=== PATIENT | male | born 1985 | race Caucasian/White ===

== ENCOUNTER 2016-09-10 20:20 | Emergency (ER) | payer MEDICAID ==
--- NOTE | 2016-09-10 21:10 | Emergency Department Report ---
Chief Complaint: Chest Pain Stated Complaint: CHEST PAIN, ELEVATED BLOOD SUGAR, DIZZINESS Time Seen by Provider: 09/10/16 20:58 - HPI History of Present Illness: Patient presents with epigastric pain that radiates down bilateral arms, he also complains of back pain. He denies nausea and vomiting. He does state that he is a borderline diabetic and he has had episodes of dizziness and confusion he states usually after he has eaten something with sugar in it. He does admit to having severe gastric reflux that was diagnosed 10 years ago and he does see at [facility]. - ROS Review of Systems: All other systems unremarkable except documentation in HPI - Exam Vital Signs: Vital Signs 09/10/16 20:38 Temperature 98.3 F Pulse Rate 115 H Respiratory 18 Rate Blood Pressure 121/99 O2 Sat by Pulse 100 Oximetry Physical Exam: Gen: Male well-developed and nourished, no apparent distress noted, ambulatory. Cardiovascular: Heart sounds present S1-S2, no murmur, gallop, edema or ectopy noted, 2+ pulses upper and lower extremities Respiratory: Chest symmetry with respirations, lungs clear to auscultate upper and lower lobes, respirations even and unlabored, no rales, rhonchi, crackles noted. Abdomen: bowel sounds present, soft, nondistended, TTP in epigastric region, no rigidity, guarding or rebound tenderness Psych: AxOx3, answers questions appropriately, mood full range, affect normal, normal speech and tone. MSE screening note: Focused history and physical exam performed. Due to findings the following was ordered: seen by provider, laboratory and radiology studies ordered, and to go to main ED to be seen by physician ED Medical Decision Making - Medical Decision Making seen by provider, laboratory and radiology studies ordered, and to go to main ED to be seen by physician ED Disposition for MSE Condition: Stable
[2016-09-10 22:04] LABS: Basophils % (Auto) 0.5 % (0.0-1.8); Eosinophils % (Auto) 1.1 % (0.0-4.3); Hematocrit 48.7 % (35.5-45.6); Hemoglobin 16.1 gm/dl (11.8-15.2); Mean Corpuscular HGB Conc 33 % (32-34); Mean Corpuscular Hemoglobin 28 pg (28-32); Mean Corpuscular Volume 85 fl (84-94); Platelet Count 219 K/mm3 (140-440); Red Blood Count 5.75 M/mm3 (3.65-5.03); White Blood Count 8.9 K/mm3 (4.5-11.0)
[2016-09-10 22:13] LABS: BUN/Creatinine Ratio 13.75; Blood Urea Nitrogen 11 mg/dL (9-20); Calcium 9.4 mg/dL (8.4-10.2); Carbon Dioxide 28 mmol/L (22-30); Glucose 94 mg/dL (75-100)
[2016-09-10 22:14] LABS: Alanine Aminotransferase 51 units/L (7-56); Albumin 4.6 g/dL (3.9-5); Albumin/Globulin Ratio 1.4 %; Alkaline Phosphatase 67 units/L (35-129); Anion Gap 17 mmol/L; Bilirubin,Total 1.1 mg/dL (0.1-1.2); Chloride 96.6 mmol/L (98-107); Creatine Kinase 116 units/L (55-170); Sodium 138 mmol/L (137-145); Total Protein 7.8 g/dL (6.3-8.2)
[2016-09-10 22:24] LABS: Creatine Kinase MB < 1.0 ng/mL (0.0-4.0)
[2016-09-11 02:08] VITALS: BP 106/66
[2016-09-11 02:17] LABS: Urine Drugs of Abuse Note Disclamer
[2016-09-11 02:45] LABS: Bacteria,Urine 2+ /HPF (Negative); Bilirubin,Urine NEG (Negative); Blood,Urine NEG (Negative); Ketones,Urine NEG (Negative); Leukocyte Esterase,Urine NEG (Negative); Mucus,Urine 3+ /HPF; Nitrite,Urine NEG (Negative); Protein,Urine <15 mg/dL mg/dL (Negative); Urobilinogen,Urine < 2.0 mg/dL (<2.0)
[2016-09-11] MEDS ORDERED: ALUM-MAG HYDROX-SIMETH 200-200-20MG/5ML PO ONE (03:45)
[2016-09-11] MEDS ORDERED: PEPCID PO ONE (03:45)
--- NOTE | 2016-09-11 03:46 | Emergency Department Report ---
ED General Adult HPI - General Chief complaint: Chest Pain Stated complaint: CHEST PAIN, ELEVATED BLOOD SUGAR, DIZZINESS Time Seen by Provider: 09/10/16 20:58 Source: patient, RN notes reviewed, old records reviewed Mode of arrival: Ambulatory Limitations: No Limitations - History of Present Illness Initial comments: This is a 31-year-old male. He is previously unknown to me. He reports a history of borderline diabetes. May have a history of GERD/gastritis. Presents to the ER complaining of bilateral chest wall pain for 2 days, squeezing, epigastric pain, dizziness. He reports intermittent dizziness and confusion after consuming sweet foods and coffee. There is no lower extremity pain. There is no lower extremity swelling. No recent trips greater than 4 hours. No recent hospital admissions. Chest discomfort does not radiate anywhere. He cannot describe exacerbating or relieving factors. -: Gradual Location: chest, abdomen Severity scale (0 -10): 2 Quality: aching Consistency: intermittent Improves with: rest Worsens with: eating Associated Symptoms: chest pain - Related Data Previous Rx's Medication Instructions Recorded Last Taken Type Penicillin Vk [Veetids TAB] 500 mg PO TID #21 tablet 12/03/15 Unknown Rx traMADol [Ultram] 50 mg PO Q6HR PRN #20 tablet 12/03/15 Unknown Rx Cyclobenzaprine [Flexeril] 10 mg PO TID PRN #15 tablet 12/12/15 Unknown Rx Ibuprofen [Motrin 800 MG tab] 800 mg PO Q8HR PRN #30 tablet 12/12/15 Unknown Rx Dicyclomine [Bentyl] 10 mg PO QID PRN #20 capsule 09/11/16 Unknown Rx Allergies Allergy/AdvReac Type Severity Reaction Status Date / Time No Known Allergies Allergy Verified 06/07/16 18:04 ED Review of Systems ROS: Stated complaint: CHEST PAIN, ELEVATED BLOOD SUGAR, DIZZINESS Other details as noted in HPI Constitutional: denies: fever, malaise Eyes: denies: vision change Respiratory: see HPI Cardiovascular: chest pain Gastrointestinal: abdominal pain Genitourinary: denies: frequency Musculoskeletal: arthralgia, myalgia Skin: denies: lesions Neurological: denies: weakness Psychiatric: anxiety ED Past Medical Hx - Past Medical History Previous Medical History?: Yes Hx GERD: Yes Additional medical history: INSOMNIA - Surgical History Past Surgical History?: No - Social History Smoking Status: Never Smoker Substance Use Type: None - Medications Home Medications: Home Medications Medication Instructions Recorded Confirmed Last Taken Type Penicillin Vk [Veetids TAB] 500 mg PO TID #21 tablet 12/03/15 Unknown Rx traMADol [Ultram] 50 mg PO Q6HR PRN #20 tablet 12/03/15 Unknown Rx Cyclobenzaprine [Flexeril] 10 mg PO TID PRN #15 tablet 12/12/15 Unknown Rx Ibuprofen [Motrin 800 MG tab] 800 mg PO Q8HR PRN #30 tablet 12/12/15 Unknown Rx Dicyclomine [Bentyl] 10 mg PO QID PRN #20 capsule 09/11/16 Unknown Rx ED Physical Exam - General Limitations: No Limitations General appearance: alert, in no apparent distress - Head Head exam: Present: atraumatic, normocephalic - Eye Eye exam: Present: normal appearance, EOMI. Absent: nystagmus - ENT ENT exam: Present: normal exam, normal orophraynx, mucous membranes moist, normal external ear exam - Neck Neck exam: Present: normal inspection, full ROM. Absent: tenderness, meningismus - Respiratory Respiratory exam: Present: normal lung sounds bilaterally. Absent: respiratory distress, wheezes, rales, rhonchi, stridor, chest wall tenderness, accessory muscle use, decreased breath sounds - Cardiovascular Cardiovascular Exam: Present: regular rate, normal rhythm, normal heart sounds. Absent: bradycardia, tachycardia, irregular rhythm, systolic murmur, diastolic murmur, rubs, gallop - GI/Abdominal GI/Abdominal exam: Present: soft, normal bowel sounds, other (there is minimal epigastric tenderness to palpation. There is no rebound, guarding or peritoneal signs.). Absent: distended, guarding, rebound, rigid, pulsatile mass - Rectal Rectal exam: Present: deferred - Extremities Exam Extremities exam: Present: normal inspection, full ROM, normal capillary refill. Absent: tenderness, pedal edema, joint swelling, calf tenderness - Back Exam Back exam: Present: normal inspection, full ROM. Absent: tenderness, CVA tenderness (R), CVA tenderness (L), muscle spasm, paraspinal tenderness, vertebral tenderness - Neurological Exam Neurological exam: Present: alert, oriented X3, normal gait, other (Extraocular movements intact. Tongue midline. No facial droop. Facial sensation intact to light touch in the V1, V2, V3 distribution bilaterally. 5 and 5 strength in 4 extremities.. Sensation is intact to light touch in 4 extremities.). Absent : motor sensory deficit - Psychiatric Psychiatric exam: Present: anxious - Skin Skin exam: Present: warm, dry, intact, normal color. Absent: rash ED Course Vital Signs 09/10/16 09/11/16 20:38 02:07 Temperature 98.3 F Pulse Rate 115 H 88 Respiratory 18 18 Rate Blood Pressure 121/99 Blood Pressure 106/66 [Left] O2 Sat by Pulse 100 Oximetry - Reevaluation(s) Reevaluation #1: 09/11/16 04:20 differential diagnosis: GERD, gastritis, pancreatitis, hyperglycemia, diabetic ketoacidosis, ammonia, constipation, anxiety, conversion disorder Assessment and plan: 31-year-old male with multiple complaints. He is afebrile with reassuring vital signs. His tachycardia has resolved. He is low risk by MATTEO score, low risk by heart score, low risk by well's criteria, with no pulmonary embolus or DVT risk factors. He has a GCS of 15, with an NIH score of 0, is clinically sober, and walks with a steady gait. His laboratory studies were not consistent with diabetic ketoacidosis or severe hyperglycemia, they were not consistent with pancreatitis either. A chest x-ray, and abdominal x-ray were essentially unremarkable, his EKG is morphologically unchanged from her prior EKG. Patient appears to have a significant anxiety component. Reevaluation #2: 09/11/16 04:25 patient's urinalysis is appreciated. No irritative or obstructive urinary symptoms. He can follow-up with her primary care doctor for this. There is no lower abdominal pain, tenderness, rebound, guarding. ED Medical Decision Making - Lab Data Result diagrams: 09/10/16 21:38 09/10/16 21:38 Vital Signs 09/10/16 09/11/16 20:38 02:07 Temperature 98.3 F Pulse Rate 115 H 88 Respiratory 18 18 Rate Blood Pressure 121/99 Blood Pressure 106/66 [Left] O2 Sat by Pulse 100 Oximetry Lab Results 09/10/16 09/10/16 09/10/16 Range/Units 20:54 21:38 21:38 WBC 8.9 (4.5-11.0) K/mm3 RBC 5.75 H (3.65-5.03) M/mm3 Hgb 16.1 H (11.8-15.2) gm/dl Hct 48.7 H (35.5-45.6) % MCV 85 (84-94) fl MCH 28 (28-32) pg MCHC 33 (32-34) % RDW 14.0 (13.2-15.2) % Plt Count 219 (140-440) K/mm3 Lymph % (Auto) 20.7 (13.4-35.0) % [place] % (Auto) 5.7 (0.0-7.3) % Eos % (Auto) 1.1 (0.0-4.3) % Baso % (Auto) 0.5 (0.0-1.8) % Lymph # 1.8 (1.2-5.4) K/mm3 [place] # 0.5 (0.0-0.8) K/mm3 Eos # 0.1 (0.0-0.4) K/mm3 Baso # 0.0 (0.0-0.1) K/mm3 Seg Neutrophils % 72.0 H (40.0-70.0) % Seg Neutrophils # 6.4 (1.8-7.7) K/mm3 Sodium 138 (137-145) mmol/L Potassium 4.0 (3.6-5.0) mmol/L Chloride 96.6 L (98-107) mmol/L Carbon Dioxide 28 (22-30) mmol/L Anion Gap 17 mmol/L BUN 11 (9-20) mg/dL Creatinine 0.8 (0.8-1.5) mg/dL Estimated GFR > 60 ml/min BUN/Creatinine Ratio 13.75 % Glucose 94 (75-100) mg/dL POC Glucose 76 (70-105) Calcium 9.4 (8.4-10.2) mg/dL Total Bilirubin 1.1 (0.1-1.2) mg/dL AST 29 (5-40) units/L ALT 51 (7-56) units/L Alkaline Phosphatase 67 (35-129) units/L Total Creatine Kinase 116 (55-170) units/L CK-MB (CK-2) < 1.0 (0.0-4.0) ng/mL CK-MB (CK-2) Rel Index 0.8 (0-4) Troponin T < 0.010 (0.00-0.029) ng/mL Total Protein 7.8 (6.3-8.2) g/dL Albumin 4.6 (3.9-5) g/dL Albumin/Globulin Ratio 1.4 % Lipase (13-60) units/L Urine Color (Yellow) Urine Turbidity (Clear) Urine pH (5.0-7.0) Ur Specific [place] (1.003-1.030) Urine Protein (Negative) mg/dL Urine Glucose (UA) (Negative) mg/dL Urine Ketones (Negative) mg/dL Urine Blood (Negative) Urine Nitrite (Negative) Urine Bilirubin (Negative) Urine Urobilinogen (<2.0) mg/dL Ur Leukocyte Esterase (Negative) Urine WBC (Auto) (0.0-6.0) /HPF Urine RBC (Auto) (0.0-6.0) /HPF Urine Bacteria (Auto) (Negative) /HPF Amorphous Crystals Urine Mucus /HPF Urine Opiates Screen Urine Methadone Screen Ur Barbiturates Screen Ur Phencyclidine Scrn Ur Amphetamines Screen U Benzodiazepines Scrn Urine Cocaine Screen U Marijuana (THC) Screen Drugs of Abuse Note Plasma/Serum Alcohol (0-0.07) gm% 09/10/16 09/10/16 09/11/16 Range/Units 21:38 21:38 02:12 WBC (4.5-11.0) K/mm3 RBC (3.65-5.03) M/mm3 Hgb (11.8-15.2) gm/dl Hct (35.5-45.6) % MCV (84-94) fl MCH (28-32) pg MCHC (32-34) % RDW (13.2-15.2) % Plt Count (140-440) K/mm3 Lymph % (Auto) (13.4-35.0) % [place] % (Auto) (0.0-7.3) % Eos % (Auto) (0.0-4.3) % Baso % (Auto) (0.0-1.8) % Lymph # (1.2-5.4) K/mm3 [place] # (0.0-0.8) K/mm3 Eos # (0.0-0.4) K/mm3 Baso # (0.0-0.1) K/mm3 Seg Neutrophils % (40.0-70.0) % Seg Neutrophils # (1.8-7.7) K/mm3 Sodium (137-145) mmol/L Potassium (3.6-5.0) mmol/L Chloride (98-107) mmol/L Carbon Dioxide (22-30) mmol/L Anion Gap mmol/L BUN (9-20) mg/dL Creatinine (0.8-1.5) mg/dL Estimated GFR ml/min BUN/Creatinine Ratio % Glucose (75-100) mg/dL POC Glucose (70-105) Calcium (8.4-10.2) mg/dL Total Bilirubin (0.1-1.2) mg/dL AST (5-40) units/L ALT (7-56) units/L Alkaline Phosphatase (35-129) units/L Total Creatine Kinase (55-170) units/L CK-MB (CK-2) (0.0-4.0) ng/mL CK-MB (CK-2) Rel Index (0-4) Troponin T (0.00-0.029) ng/mL Total Protein (6.3-8.2) g/dL Albumin (3.9-5) g/dL Albumin/Globulin Ratio % Lipase 38 (13-60) units/L Urine Color [place] (Yellow) Urine Turbidity Cloudy (Clear) Urine pH 6.0 (5.0-7.0) Ur Specific [place] 1.026 (1.003-1.030) Urine Protein <15 mg/dl (Negative) mg/dL Urine Glucose (UA) Neg (Negative) mg/dL Urine Ketones Neg (Negative) mg/dL Urine Blood Neg (Negative) Urine Nitrite Neg (Negative) Urine Bilirubin Neg (Negative) Urine Urobilinogen < 2.0 (<2.0) mg/dL Ur Leukocyte Esterase Neg (Negative) Urine WBC (Auto) 2.0 (0.0-6.0) /HPF Urine RBC (Auto) 8.0 (0.0-6.0) /HPF Urine Bacteria (Auto) 2+ (Negative) /HPF Amorphous Crystals 3+ Urine Mucus 3+ /HPF Urine Opiates Screen Urine Methadone Screen Ur Barbiturates Screen Ur Phencyclidine Scrn Ur Amphetamines Screen U Benzodiazepines Scrn Urine Cocaine Screen U Marijuana (THC) Screen Drugs of Abuse Note Plasma/Serum Alcohol < 0.01 (0-0.07) gm% 09/11/16 Range/Units 02:12 WBC (4.5-11.0) K/mm3 RBC (3.65-5.03) M/mm3 Hgb (11.8-15.2) gm/dl Hct (35.5-45.6) % MCV (84-94) fl MCH (28-32) pg MCHC (32-34) % RDW (13.2-15.2) % Plt Count (140-440) K/mm3 Lymph % (Auto) (13.4-35.0) % [place] % (Auto) (0.0-7.3) % Eos % (Auto) (0.0-4.3) % Baso % (Auto) (0.0-1.8) % Lymph # (1.2-5.4) K/mm3 [place] # (0.0-0.8) K/mm3 Eos # (0.0-0.4) K/mm3 Baso # (0.0-0.1) K/mm3 Seg Neutrophils % (40.0-70.0) % Seg Neutrophils # (1.8-7.7) K/mm3 Sodium (137-145) mmol/L Potassium (3.6-5.0) mmol/L Chloride (98-107) mmol/L Carbon Dioxide (22-30) mmol/L Anion Gap mmol/L BUN (9-20) mg/dL Creatinine (0.8-1.5) mg/dL Estimated GFR ml/min BUN/Creatinine Ratio % Glucose (75-100) mg/dL POC Glucose (70-105) Calcium (8.4-10.2) mg/dL Total Bilirubin (0.1-1.2) mg/dL AST (5-40) units/L ALT (7-56) units/L Alkaline Phosphatase (35-129) units/L Total Creatine Kinase (55-170) units/L CK-MB (CK-2) (0.0-4.0) ng/mL CK-MB (CK-2) Rel Index (0-4) Troponin T (0.00-0.029) ng/mL Total Protein (6.3-8.2) g/dL Albumin (3.9-5) g/dL Albumin/Globulin Ratio % Lipase (13-60) units/L Urine Color (Yellow) Urine Turbidity (Clear) Urine pH (5.0-7.0) Ur Specific [place] (1.003-1.030) Urine Protein (Negative) mg/dL Urine Glucose (UA) (Negative) mg/dL Urine Ketones (Negative) mg/dL Urine Blood (Negative) Urine Nitrite (Negative) Urine Bilirubin (Negative) Urine Urobilinogen (<2.0) mg/dL Ur Leukocyte Esterase (Negative) Urine WBC (Auto) (0.0-6.0) /HPF Urine RBC (Auto) (0.0-6.0) /HPF Urine Bacteria (Auto) (Negative) /HPF Amorphous Crystals Urine Mucus /HPF Urine Opiates Screen Presumptive negative Urine Methadone Screen Presumptive negative Ur Barbiturates Screen Presumptive negative Ur Phencyclidine Scrn Presumptive negative Ur Amphetamines Screen Presumptive negative U Benzodiazepines Scrn Presumptive negative Urine Cocaine Screen Presumptive negative U Marijuana (THC) Screen Presumptive negative Drugs of Abuse Note Disclamer Plasma/Serum Alcohol (0-0.07) gm% - EKG Data EKG shows normal: axis, intervals, QRS complexes, ST-T waves Rate: tachycardia - EKG Data Interpretation: unchanged when compared t 09/11/16 04:24 Sinus tachycardia, 109 bpm, normal intervals, normal axis, not morphologically consistent with STEMI, appears unchanged when compared to prior EKG. - Radiology Data Radiology results: image reviewed interpreted by me: X-ray of the chest negative for acute disease. X-ray of the abdomen and pelvis essentially negative. Constipation suggested. Critical care attestation.: If time is entered above; I have spent that time in minutes in the direct care of this critically ill patient, excluding procedure time. ED Disposition Clinical Impression: Abdominal pain Disposition: DISCHARGED TO HOME OR SELFCARE Is pt being admited?: No Does the pt Need Aspirin: No Condition: Stable Instructions: Abdominal Pain (ED) Additional Instructions: Take the pain medication as directed. Avoid consumption of heavy, spicy foods, avoid consumption of sweets, and coffee. Follow up with a primary care doctor within the next week to [address] Chen a local primary care doctor. Alternatively, you may follow up with a shed boss. Dr. Levy is a local gastroenterology specialist. Urinalysis (your urine test) demonstrated nonspecific blood and scant bacteria. This should be followed up by a primary care doctor. Return to the ER right away with new pain, worsened pain, migration of pain, fevers or chills , nausea or vomiting, inability to tolerate liquid feeds. Prescriptions: Dicyclomine [Bentyl] 10 mg PO QID PRN #20 capsule PRN Reason: Pain Referrals: PRIMARY CARE, [Primary Care Provider] - 3-5 Days MIKEL STEINER MD [Staff Physician] - 3-5 Days MARCELLA LEVY MD [Staff Physician] - 3-5 Days
--- NOTE | 2016-09-11 07:36 | XRay Report ---
Single view chest: History: Chest pain, abdominal pain. Findings: Normal cardiomediastinal silhouette. Trachea is midline. No consolidation, pneumothorax or pleural effusion. Impression: No acute cardiopulmonary findings.
== END 2016-09-11 05:49 | disposition home or self-care (01) ==
LOC: ED 20:20
DX: R10.13 Epigastric pain (principal); K21.9 Gastro-esophageal reflux disease without esophagitis
CPT/HCPCS: 36415; 74022; 80053; 80307; 81001; 82550; 82553; 82962; 83690; 84484; 85025; 93005; 93010; 99284; G0480; 80320

== ENCOUNTER 2016-10-17 21:48 | Emergency (ER) | payer MEDICAID ==
[2016-10-17 22:48] LABS: Eosinophils % (Auto) 2.8 % (0.0-4.3); Hematocrit 48.2 % (35.5-45.6); Hemoglobin 16.2 gm/dl (11.8-15.2); Mean Corpuscular HGB Conc 34 % (32-34); Mean Corpuscular Hemoglobin 28 pg (28-32); Mean Corpuscular Volume 84 fl (84-94); Platelet Count 201 K/mm3 (140-440); Red Blood Count 5.77 M/mm3 (3.65-5.03); Red Cell Distribution Width 14.4 % (13.2-15.2)
[2016-10-17 23:56] LABS: Anion Gap 20 mmol/L; BUN/Creatinine Ratio 11.42; Blood Urea Nitrogen 8 mg/dL (9-20); Calcium 9.7 mg/dL (8.4-10.2); Carbon Dioxide 27 mmol/L (22-30); Chloride 98.3 mmol/L (98-107); Glucose 104 mg/dL (75-100); Potassium 4.5 mmol/L (3.6-5.0); Sodium 141 mmol/L (137-145)
[2016-10-18 03:32] VITALS: BP 129/88
[2016-10-18] MEDS ORDERED: TORADOL IM ONE (04:20)
[2016-10-18] MEDS ORDERED: ULTRAM PO ONE (04:20)
--- NOTE | 2016-10-18 04:35 | Emergency Department Report ---
ED Chest Pain HPI - General Chief Complaint: Chest Pain Stated Complaint: CHEST PAIN/HEADACHE Time Seen by Provider: 10/18/16 04:12 Source: patient Mode of arrival: Ambulatory Limitations: No Limitations - History of Present Illness Initial Comments: 31-year-old male with a past medical history of GERD and insomnia presents to the hospital with complaints of chest pain after last night. Pain is in the right upper chest extending to shoulder and trapezius muscle. It is intermittent pressure rated 6/10 in intensity worse with movement and alleviated at rest. Patient reports a cough for several days and thinks he is allergic to pollen. The last 2-3 weeks he has had intermittent right frontal headache. No reports of vomiting, diaphoresis, fever, shortness of breath, recent travel, or edema. Occasional nausea reported. Severity scale (0 -10): 0 - Related Data Previous Rx's Medication Instructions Recorded Last Taken Type Penicillin Vk [Veetids TAB] 500 mg PO TID #21 tablet 12/03/15 Unknown Rx Dicyclomine [Bentyl] 10 mg PO QID PRN #20 capsule 09/11/16 Unknown Rx Cyclobenzaprine [Flexeril 10 MG 10 mg PO TID PRN #15 tablet 10/18/16 Unknown Rx TAB] Ibuprofen [Motrin 800 MG tab] 800 mg PO Q8HR PRN #30 tablet 10/18/16 Unknown Rx traMADol [Ultram 50 MG tab] 50 mg PO Q6HR PRN #20 tablet 10/18/16 Unknown Rx Allergies Allergy/AdvReac Type Severity Reaction Status Date / Time No Known Allergies Allergy Verified 06/07/16 18:04 MATTEO score - Matteo Score Age > 65: (0) No Aspirin use within the Past 7 Days: (0) No 3 or more CAD Risk Factors: (0) No 2 or more Angina events in past 24 hrs: (0) No Known CAD with more than 50% Stenosis: (0) No Elevated Cardiac Markers: (0) No ST Deviation Greater than 0.5mm: (0) No MATTEO Score: 0 ED Review of Systems ROS: Stated complaint: CHEST PAIN/HEADACHE Other details as noted in HPI Comment: All other systems reviewed and negative Other: Constitutional: No fevers chills Eyes: No eye pain visual changes ENT: No ear pain or throat pain Neck: Denies pain Respiratory: Denies cough wheezing shortness of breath Cardiovascular: Denies palpitations, syncope GI: Denies abdominal pain, nausea, vomiting, diarrhea : Denies dysuria Musculoskeletal: Denies back aisha Skin: Denies rash, lesions, erythema Neurologic: Denies headache, numbness, weakness Psychiatric: Denies suicidal ideation, hallucinations y ED Past Medical Hx - Past Medical History Previous Medical History?: Yes Hx GERD: Yes Additional medical history: INSOMNIA / [employer] 2015 - Surgical History Past Surgical History?: No - Social History Smoking Status: Former Smoker Substance Use Type: Alcohol - Medications Home Medications: Home Medications Medication Instructions Recorded Confirmed Last Taken Type Penicillin Vk [Veetids TAB] 500 mg PO TID #21 tablet 12/03/15 Unknown Rx Dicyclomine [Bentyl] 10 mg PO QID PRN #20 capsule 09/11/16 Unknown Rx Cyclobenzaprine [Flexeril 10 MG 10 mg PO TID PRN #15 tablet 10/18/16 Unknown Rx TAB] Ibuprofen [Motrin 800 MG tab] 800 mg PO Q8HR PRN #30 tablet 10/18/16 Unknown Rx traMADol [Ultram 50 MG tab] 50 mg PO Q6HR PRN #20 tablet 10/18/16 Unknown Rx ED Physical Exam - General Limitations: No Limitations - Other Other exam information: General: No limitations, patient is alert in no acute distress Head exam: Atraumatic, normocephalic Eyes exam: Normal appearance ENT: Moist mucous membrane, normal oropharynx, no sinus tenderness on palpation Neck exam: Normal inspection, full range of motion and no midline tenderness, no meningismus Respiratory exam: Clear to auscultation bilateral, no wheezes, rales, crackles Cardiovascular: Normal rate and rhythm, distal tenderness to the right upper chest wall and trapezius also reproducible with movement Abdomen: Soft, nondistended, and nontender, with normal bowel sounds, no rebound, or guarding Extremity: Full range of motion normal inspection no deformity Back: Normal Inspection, full range of motion, no tenderness Neurologic: Alert, oriented x3, cranial nerves intact, no motor or sensory deficit Psychiatric: normal affect, normal mood Skin: Warm, dry, intact ED Course Vital Signs 10/17/16 10/18/16 22:00 03:24 Temperature 99.1 F Pulse Rate 103 H 91 H Respiratory 18 18 Rate Blood Pressure 125/81 Blood Pressure 129/88 [Left] O2 Sat by Pulse 99 100 Oximetry - Reevaluation(s) Reevaluation #1: 10/18/16 04:36 Patient treated with Toradol and tramadol ED Medical Decision Making - Lab Data Result diagrams: 10/17/16 22:29 10/17/16 22:29 Lab Results 10/17/16 10/17/16 10/18/16 Range/Units 22:29 22:29 01:01 WBC 8.0 (4.5-11.0) K/mm3 RBC 5.77 H (3.65-5.03) M/mm3 Hgb 16.2 H (11.8-15.2) gm/dl Hct 48.2 H (35.5-45.6) % MCV 84 (84-94) fl MCH 28 (28-32) pg MCHC 34 (32-34) % RDW 14.4 (13.2-15.2) % Plt Count 201 (140-440) K/mm3 Lymph % (Auto) 34.6 (13.4-35.0) % [place] % (Auto) 6.8 (0.0-7.3) % Eos % (Auto) 2.8 (0.0-4.3) % Baso % (Auto) 1.0 (0.0-1.8) % Lymph # 2.8 (1.2-5.4) K/mm3 [place] # 0.5 (0.0-0.8) K/mm3 Eos # 0.2 (0.0-0.4) K/mm3 Baso # 0.1 (0.0-0.1) K/mm3 Seg Neutrophils % 54.8 (40.0-70.0) % Seg Neutrophils # 4.4 (1.8-7.7) K/mm3 Sodium 141 (137-145) mmol/L Potassium 4.5 (3.6-5.0) mmol/L Chloride 98.3 (98-107) mmol/L Carbon Dioxide 27 (22-30) mmol/L Anion Gap 20 mmol/L BUN 8 L (9-20) mg/dL Creatinine 0.7 L (0.8-1.5) mg/dL Estimated GFR > 60 ml/min BUN/Creatinine Ratio 11.42 % Glucose 104 H (75-100) mg/dL Calcium 9.7 (8.4-10.2) mg/dL Troponin T < 0.010 < 0.010 (0.00-0.029) ng/mL - EKG Data -: EKG Interpreted by Me (nsr rate 97, no stemi) - Medical Decision Making Patient will be treated for musculoskeletal chest pain and seasonal allergies. Pain is right-sided, reproducible with normal EKG and negative cardiac enzymes. Patient also lacks cardiac or PE risk factors - Differential Diagnosis msk pain, bronchitis, seasonal allergies, sinusitis, migraine Critical Care Time: No Critical care attestation.: If time is entered above; I have spent that time in minutes in the direct care of this critically ill patient, excluding procedure time. ED Disposition Clinical Impression: Chest wall pain Disposition: DISCHARGED TO HOME OR SELFCARE Is pt being admited?: No Does the pt Need Aspirin: No Condition: Stable Instructions: Thoracic Pain (ED) Additional Instructions: Take the medication as prescribed. Tramadol and Flexeril can cause drowsiness so do not drive while taking these medications. Follow up with your doctor to doctor provided. Return if symptoms worsen Prescriptions: Cyclobenzaprine [Flexeril 10 MG TAB] 10 mg PO TID PRN #15 tablet PRN Reason: Muscle Spasm Ibuprofen [Motrin 800 MG tab] 800 mg PO Q8HR PRN #30 tablet PRN Reason: Pain traMADol [Ultram 50 MG tab] 50 mg PO Q6HR PRN #20 tablet PRN Reason: Pain Referrals: PRIMARY CARE, [Primary Care Provider] - 3-5 Days [facility] [Provider Group] - 3-5 Days Time of Disposition: 04:38
== END 2016-10-18 05:21 | disposition home or self-care (01) ==
LOC: ED 21:48
DX: R07.89 Other chest pain (principal); K21.9 Gastro-esophageal reflux disease without esophagitis; Z87.891 Personal history of nicotine dependence; G47.00 Insomnia, unspecified
CPT/HCPCS: 36415; 80048; 84484; 85025; 93005; 93010; 96372; 99284; J1885

== ENCOUNTER 2017-02-28 17:30 | Emergency (ER) | payer MEDICAID ==
[2017-02-28 18:18] LABS: Basophils % (Auto) 0.6 % (0.0-1.8); Eosinophils % (Auto) 2.4 % (0.0-4.3); Hematocrit 46.7 % (35.5-45.6); Hemoglobin 15.7 gm/dl (11.8-15.2); Mean Corpuscular HGB Conc 34 % (32-34); Mean Corpuscular Hemoglobin 29 pg (28-32); Mean Corpuscular Volume 85 fl (84-94); Platelet Count 208 K/mm3 (140-440); Red Blood Count 5.47 M/mm3 (3.65-5.03); Red Cell Distribution Width 14.1 % (13.2-15.2); White Blood Count 8.3 K/mm3 (4.5-11.0)
[2017-02-28 18:43] LABS: Anion Gap 19 mmol/L; Blood Urea Nitrogen 14 mg/dL (9-20); Calcium 9.1 mg/dL (8.4-10.2); Carbon Dioxide 26 mmol/L (22-30); Chloride 100.3 mmol/L (98-107); Glucose 106 mg/dL (75-100); Potassium 4.1 mmol/L (3.6-5.0); Sodium 141 mmol/L (137-145)
[2017-02-28 21:04] LABS: Bilirubin,Urine NEG (Negative); Blood,Urine NEG (Negative); Ketones,Urine NEG (Negative); Leukocyte Esterase,Urine NEG (Negative); Mucus,Urine 2+ /HPF; Nitrite,Urine NEG (Negative); Urobilinogen,Urine < 2.0 mg/dL (<2.0)
--- NOTE | 2017-03-01 00:43 | Emergency Department Report ---
ED Chest Pain HPI - General Chief Complaint: Chest Pain Stated Complaint: CHEST PAIN Time Seen by Provider: 03/01/17 00:33 Source: patient Mode of arrival: Ambulatory Limitations: No Limitations - History of Present Illness Initial Comments: 31 years old male coming with left-sided chest pain started yesterday on and off , described his pain as a sharp pain. Denied any fever shortness of breaths nor nausea nor vomiting no other complaint. Patient stated that he is been dealing with a lot of stress. But he is denying any suicidal or homicidal ideation depression. MD Complaint: chest pain Onset: during rest Severity scale (0 -10): 6 - Related Data Previous Rx's Medication Instructions Recorded Last Taken Type Penicillin Vk [Veetids TAB] 500 mg PO TID #21 tablet 12/03/15 Unknown Rx Dicyclomine [Bentyl] 10 mg PO QID PRN #20 capsule 09/11/16 Unknown Rx Cyclobenzaprine [Flexeril 10 MG 10 mg PO TID PRN #15 tablet 10/18/16 Unknown Rx TAB] Ibuprofen [Motrin 800 MG tab] 800 mg PO Q8HR PRN #30 tablet 10/18/16 Unknown Rx traMADol [Ultram 50 MG tab] 50 mg PO Q6HR PRN #20 tablet 10/18/16 Unknown Rx Allergies Allergy/AdvReac Type Severity Reaction Status Date / Time No Known Allergies Allergy Verified 06/07/16 18:04 Heart Score - HEART Score History: Slightly suspicious EKG: Normal Age: < 45 Risk factors: No known risk factors Troponin: < normal limit HEART Score: 0 - Critical Actions Critical Actions: 0-3 pts:0.9-1.7%risk of adverse cardiac event.Candidate for discharge ED Review of Systems ROS: Stated complaint: CHEST PAIN Other details as noted in HPI Comment: All other systems reviewed and negative Constitutional: denies: chills, fever Eyes: denies: eye pain, eye discharge, vision change Respiratory: denies: cough, shortness of breath, SOB with exertion Cardiovascular: chest pain. denies: palpitations, dyspnea on exertion, edema, syncope, paroxysmal nocturnal dyspnea Endocrine: denies: intolerance to cold, intolerance to heat Gastrointestinal: denies: abdominal pain, nausea, vomiting, diarrhea, constipation, hematemesis Genitourinary: denies: dysuria, frequency Neurological: denies: headache ED Past Medical Hx - Past Medical History Hx GERD: Yes Additional medical history: INSOMNIA / HOLTER MONITOR 2016 - Social History Smoking Status: Current Some Day Smoker Substance Use Type: Alcohol - Medications Home Medications: Home Medications Medication Instructions Recorded Confirmed Last Taken Type Penicillin Vk [Veetids TAB] 500 mg PO TID #21 tablet 12/03/15 Unknown Rx Dicyclomine [Bentyl] 10 mg PO QID PRN #20 capsule 09/11/16 Unknown Rx Cyclobenzaprine [Flexeril 10 MG 10 mg PO TID PRN #15 tablet 10/18/16 Unknown Rx TAB] Ibuprofen [Motrin 800 MG tab] 800 mg PO Q8HR PRN #30 tablet 10/18/16 Unknown Rx traMADol [Ultram 50 MG tab] 50 mg PO Q6HR PRN #20 tablet 10/18/16 Unknown Rx ED Physical Exam - General Limitations: No Limitations General appearance: alert, in no apparent distress - Head Head exam: Present: atraumatic - Eye Eye exam: Present: normal appearance - ENT ENT exam: Present: normal exam - Neck Neck exam: Present: normal inspection, full ROM. Absent: tenderness, meningismus - Respiratory Respiratory exam: Present: normal lung sounds bilaterally. Absent: respiratory distress, wheezes, rales, rhonchi, stridor, chest wall tenderness, accessory muscle use, decreased breath sounds, prolonged expiratory - Cardiovascular Cardiovascular Exam: Present: regular rate, normal rhythm, normal heart sounds - GI/Abdominal GI/Abdominal exam: Present: soft. Absent: distended, tenderness, guarding, rebound, rigid, normal bowel sounds, mass, bruit, pulsatile mass, hernia - Neurological Exam Neurological exam: Present: alert, oriented X3, CN II-XII intact - Skin Skin exam: Present: warm, intact, normal color ED Course Vital Signs 02/28/17 02/28/17 03/01/17 17:42 20:52 00:35 Temperature 98.7 F 98.6 F 98.7 F Pulse Rate 101 H 72 59 L Respiratory 18 18 17 Rate Blood Pressure 126/90 111/78 Blood Pressure 109/82 [Left] O2 Sat by Pulse 100 99 99 Oximetry - Reevaluation(s) Reevaluation #1: 03/01/17 01:32 Patient is stating that he is feeling much better. All his labs and x-rays negative EKG is completely normal advised patient to follow up with his primary care physician for further management. MATTEO score - Matteo Score Age > 65: (0) No Aspirin use within the Past 7 Days: (0) No 3 or more CAD Risk Factors: (0) No 2 or more Angina events in past 24 hrs: (0) No Known CAD with more than 50% Stenosis: (0) No Elevated Cardiac Markers: (0) No ST Deviation Greater than 0.5mm: (0) No MATTEO Score: 0 ED Medical Decision Making - Lab Data Result diagrams: 02/28/17 17:56 02/28/17 17:56 Critical care attestation.: If time is entered above; I have spent that time in minutes in the direct care of this critically ill patient, excluding procedure time. ED Disposition Clinical Impression: Chest pain Disposition: DC-01 TO HOME OR SELFCARE Is pt being admited?: No Does the pt Need Aspirin: No Condition: Stable Instructions: Chest Pain (ED) Referrals: PRIMARY CARE, [Primary Care Provider] - 3-5 Days
[2017-03-01] MEDS ORDERED: TORADOL IM ONE (01:35)
[2017-03-01 02:07] VITALS: BP 116/74
--- NOTE | 2017-03-01 09:22 | XRay Report ---
AP CHEST: HISTORY: chest pain AP view of the chest demonstrates a normal mediastinal and cardiac contour with clear lungs and normal bony and soft tissue structures. IMPRESSION: No acute cardiopulmonary process.
== END 2017-03-01 02:05 | disposition home or self-care (01) ==
LOC: ED 17:30
DX: R07.9 Chest pain, unspecified (principal); K21.9 Gastro-esophageal reflux disease without esophagitis; F17.200 Nicotine dependence, unspecified, uncomplicated
CPT/HCPCS: 36415; 71010; 80048; 81001; 84484; 85025; 93005; 93010; 96372; 99284; J1885

== ENCOUNTER 2017-04-13 04:09 | Emergency (ER) | payer MEDICAID ==
[2017-04-13] MEDS ORDERED: LIDOCAINE VISCOUS 2% PO ONE (06:49)
[2017-04-13] MEDS ORDERED: ATROVENT IH ONE (06:50)
[2017-04-13] MEDS ORDERED: PROVENTIL IH ONE (06:50)
[2017-04-13] MEDS ORDERED: ALUM-MAG HYDROX-SIMETH 200-200-20MG/5ML PO ONE (06:50)
[2017-04-13] MEDS ORDERED: DELTASONE PO ONE (06:51)
--- NOTE | 2017-04-13 07:16 | XRay Report ---
ROUTINE CHEST, TWO VIEWS: HISTORY: Shortness of breath. The trachea, heart, mediastinal contour, lung bernardo and bony thorax are unremarkable. IMPRESSION: Unremarkable chest x-ray. No change since 03/01/17.
[2017-04-13 07:33] VITALS: BP 106/75
--- NOTE | 2017-04-13 07:57 | Emergency Department Report ---
ED General Adult HPI - General Chief complaint: Dyspnea/Respdistress Stated complaint: SHORTH OF BREATH Time Seen by Provider: 04/13/17 06:48 Source: patient Mode of arrival: Ambulatory Limitations: No Limitations - History of Present Illness Initial comments: Patient is a 31-year-old male no significant past medical history who presents with cough and some slight shortness of breath. Patient states that he has had upper respiratory tract irritation for the last couple weeks. He states that it is worse at night coughing makes his symptoms worse. He denies anything making anything better. H&H and states that he smokes and he denies having any chest pain but he has been having a moderate productive cough. Patient states that he will only get short of breath on exertion. Patient denies having any fevers or chills. Patient also denies having any hemoptysis. - Related Data Previous Rx's Medication Instructions Recorded Last Taken Type Ibuprofen [Motrin 800 MG tab] 800 mg PO Q8HR PRN #30 tablet 10/18/16 04/11/17 Rx predniSONE [Deltasone] 20 mg PO BID #8 tab 04/13/17 Unknown Rx Allergies Allergy/AdvReac Type Severity Reaction Status Date / Time No Known Allergies Allergy Verified 06/07/16 18:04 ED Review of Systems ROS: Stated complaint: SHORTH OF BREATH Other details as noted in HPI Constitutional: denies: chills, fever Eyes: denies: eye pain, eye discharge, vision change ENT: denies: ear pain, throat pain Respiratory: cough. denies: shortness of breath, wheezing Cardiovascular: denies: chest pain, palpitations Endocrine: no symptoms reported Gastrointestinal: denies: abdominal pain, nausea, diarrhea Genitourinary: denies: urgency, dysuria Musculoskeletal: denies: back pain, joint swelling, arthralgia Skin: denies: rash, lesions Neurological: denies: headache, weakness, paresthesias Psychiatric: denies: anxiety, depression Hematological/Lymphatic: denies: easy bleeding, easy bruising ED Past Medical Hx - Past Medical History Previous Medical History?: Yes Hx GERD: Yes Additional medical history: INSOMNIA / HOLTER MONITOR 2016 Bronchitis - Surgical History Past Surgical History?: No - Social History Smoking Status: Current Some Day Smoker Substance Use Type: Alcohol - Medications Home Medications: Home Medications Medication Instructions Recorded Confirmed Last Taken Type Ibuprofen [Motrin 800 MG tab] 800 mg PO Q8HR PRN #30 tablet 10/18/16 04/13/17 Rx predniSONE [Deltasone] 20 mg PO BID #8 tab 04/13/17 Unknown Rx ED Physical Exam - General Limitations: No Limitations General appearance: alert, in no apparent distress - Head Head exam: Present: atraumatic, normocephalic - Eye Eye exam: Present: normal appearance - ENT ENT exam: Present: mucous membranes moist - Neck Neck exam: Present: normal inspection - Respiratory Respiratory exam: Present: normal lung sounds bilaterally. Absent: respiratory distress - Cardiovascular Cardiovascular Exam: Present: regular rate, normal rhythm. Absent: systolic murmur, diastolic murmur, rubs, gallop - GI/Abdominal GI/Abdominal exam: Present: soft, normal bowel sounds - Rectal Rectal exam: Present: deferred - Extremities Exam Extremities exam: Present: normal inspection - Back Exam Back exam: Present: normal inspection - Neurological Exam Neurological exam: Present: alert, oriented X3 - Psychiatric Psychiatric exam: Present: normal affect, normal mood - Skin Skin exam: Present: warm, dry, intact, normal color. Absent: rash ED Course Vital Signs 04/13/17 04/13/17 04/13/17 04:15 06:30 06:31 Temperature 98.0 F 97.6 F Pulse Rate 88 65 Pulse Rate [ Throughout] Respiratory 18 18 18 Rate Respiratory Rate [ Throughout] Blood Pressure 127/71 103/65 O2 Sat by Pulse 97 95 98 Oximetry 04/13/17 04/13/17 04/13/17 06:46 07:00 07:16 Temperature Pulse Rate 60 61 61 Pulse Rate [ Throughout] Respiratory 18 12 16 Rate Respiratory Rate [ Throughout] Blood Pressure 108/69 106/75 106/75 O2 Sat by Pulse 96 96 97 Oximetry 04/13/17 04/13/17 04/13/17 07:30 07:45 07:46 Temperature Pulse Rate 63 Pulse Rate [ 63 62 Throughout] Respiratory 14 Rate Respiratory 17 21 Rate [ Throughout] Blood Pressure 106/75 O2 Sat by Pulse 98 Oximetry ED Medical Decision Making - Radiology Data Radiology results: report reviewed, image reviewed Chest x-ray: Shows no acute cardiopulmonary disease - Medical Decision Making Chief medical diagnosis: Bronchitis Differential multiple diagnosis: Pneumonia, pneumothorax, pharyngitis I will give patient albuterol and ipratropium neb, and his own, patient is also complaining of a bowel movement L give him GI cocktail. Patient's symptoms are better in the emergency department. Engage in smoking cessation counseling with patient for the last 3 minutes. Critical care attestation.: If time is entered above; I have spent that time in minutes in the direct care of this critically ill patient, excluding procedure time. ED Disposition Clinical Impression: Cough, Tobacco abuse counseling, Tobacco abuse, Bronchitis GERD (gastroesophageal reflux disease) Qualifiers: Esophagitis presence: without esophagitis Qualified Code(s): K21.9 - Gastro- esophageal reflux disease without esophagitis Disposition: TO HOME OR SELFCARE Is pt being admited?: No Does the pt Need Aspirin: No Condition: Stable Instructions: Acute Bronchitis (ED) Prescriptions: predniSONE [Deltasone] 20 mg PO BID #8 tab Referrals: ADRIENNE JC MD [Staff Physician] - 3-5 Days
== END 2017-04-13 08:35 | disposition home or self-care (01) ==
LOC: ED 04:09
DX: J40 Bronchitis, not specified as acute or chronic (principal); K21.9 Gastro-esophageal reflux disease without esophagitis; R05 Cough; F17.200 Nicotine dependence, unspecified, uncomplicated
CPT/HCPCS: 71020; 94640; 99283; J7512

== ENCOUNTER 2017-05-14 21:50 | Emergency (ER) | payer MEDICAID ==
[2017-05-14 23:02] LABS: Eosinophils % (Auto) 2.5 % (0.0-4.3); Hematocrit 48.4 % (35.5-45.6); Hemoglobin 16.4 gm/dl (11.8-15.2); Mean Corpuscular HGB Conc 34 % (32-34); Mean Corpuscular Hemoglobin 29 pg (28-32); Mean Corpuscular Volume 85 fl (84-94); Platelet Count 210 K/mm3 (140-440); Red Blood Count 5.71 M/mm3 (3.65-5.03); Red Cell Distribution Width 14.7 % (13.2-15.2); White Blood Count 9.1 K/mm3 (4.5-11.0)
[2017-05-14 23:26] LABS: Alanine Aminotransferase 32 units/L (7-56); Albumin 4.8 g/dL (3.9-5); Albumin/Globulin Ratio 1.5 %; Alkaline Phosphatase 60 units/L (35-129); BUN/Creatinine Ratio 11; Blood Urea Nitrogen 8 mg/dL (9-20); Calcium 9.8 mg/dL (8.4-10.2); Carbon Dioxide 28 mmol/L (22-30); Glucose 90 mg/dL (75-100)
[2017-05-14 23:27] LABS: Anion Gap 19 mmol/L; Chloride 97.4 mmol/L (98-107); Potassium 4.2 mmol/L (3.6-5.0); Sodium 140 mmol/L (137-145)
[2017-05-15 01:08] VITALS: BP 117/82
--- NOTE | 2017-05-15 06:38 | Emergency Department Report ---
ED General Adult HPI - General Chief complaint: Chest Pain Stated complaint: BERTO Time Seen by Provider: 05/15/17 06:27 Source: patient Mode of arrival: Ambulatory Limitations: No Limitations - History of Present Illness Initial comments: This is a 31-year-old male who is previously known to this provider. He presents to the ER with resolved chest tightness and cough. Patient reports he was cleaning a ceiling, and some of the dust landed on him. He denies complaints at this time. There are no pulmonary embolus or DVT risk factors. He is sitting comfortable in a stretcher. -: Gradual Location: chest Radiation: non-radiation Severity scale (0 -10): 4 Quality: aching Consistency: now resolved Improves with: none Worsens with: none Associated Symptoms: confusion, chest pain. denies: shortness of breath - Related Data Previous Rx's Medication Instructions Recorded Last Taken Type Ibuprofen [Motrin 800 MG tab] 800 mg PO Q8HR PRN #30 tablet 10/18/16 04/11/17 Rx predniSONE [Deltasone] 20 mg PO BID #8 tab 04/13/17 Unknown Rx Albuterol Sulfate [Proair 90 mcg IH Q4HR PRN #2 aer.pow.ba 05/15/17 Unknown Rx Respiclick] Benzonatate [Tessalon Perles] 100 mg PO Q8HR PRN #30 capsule 05/15/17 Unknown Rx Ibuprofen [Motrin] 600 mg PO Q8H PRN #30 tablet 05/15/17 Unknown Rx Allergies Allergy/AdvReac Type Severity Reaction Status Date / Time No Known Allergies Allergy Verified 06/07/16 18:04 ED Review of Systems ROS: Stated complaint: BERTO Other details as noted in HPI Constitutional: denies: fever Eyes: denies: vision change ENT: denies: epistaxis Respiratory: cough Cardiovascular: chest pain Gastrointestinal: denies: abdominal pain Genitourinary: as per HPI Musculoskeletal: as per HPI Skin: as per HPI Neurological: as per HPI ED Past Medical Hx - Past Medical History Previous Medical History?: Yes Hx GERD: Yes Additional medical history: INSOMNIA / HOLTER MONITOR 2016 Bronchitis - Surgical History Past Surgical History?: No - Social History Smoking Status: Current Some Day Smoker Substance Use Type: Alcohol - Medications Home Medications: Home Medications Medication Instructions Recorded Confirmed Last Taken Type Ibuprofen [Motrin 800 MG tab] 800 mg PO Q8HR PRN #30 tablet 10/18/16 04/13/17 Rx predniSONE [Deltasone] 20 mg PO BID #8 tab 04/13/17 Unknown Rx Albuterol Sulfate [Proair 90 mcg IH Q4HR PRN #2 aer.pow.ba 05/15/17 Unknown Rx Respiclick] Benzonatate [Tessalon Perles] 100 mg PO Q8HR PRN #30 capsule 05/15/17 Unknown Rx Ibuprofen [Motrin] 600 mg PO Q8H PRN #30 tablet 05/15/17 Unknown Rx ED Physical Exam - General Limitations: No Limitations General appearance: alert, in no apparent distress - Head Head exam: Present: atraumatic, normocephalic - Eye Eye exam: Present: normal appearance, EOMI - ENT ENT exam: Present: normal exam, normal orophraynx, mucous membranes moist, normal external ear exam - Neck Neck exam: Present: normal inspection, full ROM - Respiratory Respiratory exam: Present: normal lung sounds bilaterally. Absent: respiratory distress, wheezes, rales, rhonchi, stridor - Cardiovascular Cardiovascular Exam: Present: regular rate, normal rhythm, normal heart sounds. Absent: systolic murmur, diastolic murmur, rubs, gallop - GI/Abdominal GI/Abdominal exam: Present: soft, normal bowel sounds. Absent: distended, tenderness, guarding, rebound, rigid, pulsatile mass - Rectal Rectal exam: Present: deferred - Extremities Exam Extremities exam: Present: normal inspection, full ROM, normal capillary refill. Absent: pedal edema, calf tenderness - Back Exam Back exam: Present: normal inspection. Absent: paraspinal tenderness, vertebral tenderness - Neurological Exam Neurological exam: Present: alert, oriented X3, normal gait, other (Extraocular movements intact. Tongue midline. No facial droop. Facial sensation intact to light touch in the V1, V2, V3 distribution bilaterally. 5 and 5 strength in 4 extremities.. Sensation is intact to light touch in 4 extremities.). Absent : motor sensory deficit - Psychiatric Psychiatric exam: Present: normal affect, normal mood - Skin Skin exam: Present: warm, dry, intact, normal color. Absent: rash ED Course Vital Signs 05/14/17 05/14/17 05/15/17 22:04 22:08 01:07 Temperature 97 F L 98.7 F Pulse Rate 90 86 74 Respiratory 16 18 Rate Blood Pressure 121/67 117/82 O2 Sat by Pulse 100 100 Oximetry - Reevaluation(s) Reevaluation #1: 05/15/17 06:39 No pulmonary embolus or DVT risk factors, low risk by well's criteria, perc negative ED Medical Decision Making - Lab Data Result diagrams: 05/14/17 22:37 05/14/17 22:37 Vital Signs 05/14/17 05/14/17 05/15/17 22:04 22:08 01:07 Temperature 97 F L 98.7 F Pulse Rate 90 86 74 Respiratory 16 18 Rate Blood Pressure 121/67 117/82 O2 Sat by Pulse 100 100 Oximetry Lab Results 05/14/17 05/14/17 Range/Units 22:37 22:37 WBC 9.1 (4.5-11.0) K/mm3 RBC 5.71 H (3.65-5.03) M/mm3 Hgb 16.4 H (11.8-15.2) gm/dl Hct 48.4 H (35.5-45.6) % MCV 85 (84-94) fl MCH 29 (28-32) pg MCHC 34 (32-34) % RDW 14.7 (13.2-15.2) % Plt Count 210 (140-440) K/mm3 Lymph % (Auto) 39.3 H (13.4-35.0) % [place] % (Auto) 6.9 (0.0-7.3) % Eos % (Auto) 2.5 (0.0-4.3) % Baso % (Auto) 1.0 (0.0-1.8) % Lymph # 3.6 (1.2-5.4) K/mm3 [place] # 0.6 (0.0-0.8) K/mm3 Eos # 0.2 (0.0-0.4) K/mm3 Baso # 0.1 (0.0-0.1) K/mm3 Seg Neutrophils % 50.3 (40.0-70.0) % Seg Neutrophils # 4.6 (1.8-7.7) K/mm3 Sodium 140 (137-145) mmol/L Potassium 4.2 (3.6-5.0) mmol/L Chloride 97.4 L (98-107) mmol/L Carbon Dioxide 28 (22-30) mmol/L Anion Gap 19 mmol/L BUN 8 L (9-20) mg/dL Creatinine 0.7 L (0.8-1.5) mg/dL Estimated GFR > 60 ml/min BUN/Creatinine Ratio 11 % Glucose 90 (75-100) mg/dL Calcium 9.8 (8.4-10.2) mg/dL Total Bilirubin 1.10 (0.1-1.2) mg/dL AST 23 (5-40) units/L ALT 32 (7-56) units/L Alkaline Phosphatase 60 (35-129) units/L Total Protein 8.0 (6.3-8.2) g/dL Albumin 4.8 (3.9-5) g/dL Albumin/Globulin Ratio 1.5 % - EKG Data -: EKG Interpreted by Me - EKG Data 05/15/17 06:35 EKG #1 demonstrates normal sinus, 86 bpm, normal intervals, normal axis, not morphologically consistent with STEMI. EKG #2 is unchanged. Both EKGs unchanged from prior EKG. - Radiology Data Radiology results: image reviewed interpreted by me: X-ray of the chest is negative for acute disease - Medical Decision Making Differential diagnosis, including but not limited to: Pneumonitis, costochondritis, pneumonia, bronchitis Assessment and plan: 31-year-old male who complains of cough after exposure to particulate dust matter when cleaning his ceiling. He initially had central chest pain with coughing, this has resolved. There are no pulmonary embolus or DVT risk factors, he is low risk by well's criteria, his EKG is morphologically unremarkable, and all of his chest discomfort was in the context of coughing, which in turn was in the context of dust exposure. Given clinical history, do not believe the patient requires acute coronary syndrome risk stratification. He is saturating well, with no focal lung findings, has been observed in the ER for over 6 hours, and is clinically well-appearing. There does not appear to be an emergent condition at this time, the patient is suitable to follow up with outpatient primary care doctor. Critical care attestation.: If time is entered above; I have spent that time in minutes in the direct care of this critically ill patient, excluding procedure time. ED Disposition Clinical Impression: Dust exposure Disposition: DC- TO HOME OR SELFCARE Is pt being admited?: No Does the pt Need Aspirin: No Condition: Stable Instructions: Chemical Pneumonitis (ED) Additional Instructions: Take the medications as needed for cough, pain, discomfort. Follow up with your primary care doctor within the next 3-4 weeks. Return to the ER right away with new pain, worsened pain, migration of pain, fevers, chills, lethargy, irritability, projectile vomiting, change in mental status, inability to tolerate liquid feeds. Prescriptions: Albuterol Sulfate [Proair Respiclick] 90 mcg IH Q4HR PRN #2 aer.pow.ba PRN Reason: Wheezing Benzonatate [Tessalon Perles] 100 mg PO Q8HR PRN #30 capsule PRN Reason: Cough Ibuprofen [Motrin] 600 mg PO Q8H PRN #30 tablet PRN Reason: Pain Referrals: THANG CARPENTER MD [Primary Care Provider] - 3-5 Days
--- NOTE | 2017-05-15 07:26 | XRay Report ---
Chest 2 views: Compared to 04/13/17. History: Chest pain. Findings: Normal cardiomediastinal silhouette. Trachea is midline. No consolidation, pneumothorax or pleural effusion. Impression: No acute cardiopulmonary findings.
== END 2017-05-15 06:45 | disposition home or self-care (01) ==
LOC: ED 21:50
DX: R07.89 Other chest pain (principal); R05 Cough; Z57.2 Occupational exposure to dust; K21.9 Gastro-esophageal reflux disease without esophagitis; F17.200 Nicotine dependence, unspecified, uncomplicated
CPT/HCPCS: 36415; 71020; 80053; 85025; 93005; 93010; 99284

== ENCOUNTER 2017-06-27 00:14 | Emergency (ER) | payer MEDICAID ==
[2017-06-27 02:07] LABS: Bilirubin,Urine NEG (Negative); Blood,Urine SM (Negative); Color,Urine Yellow (Yellow); Mucus,Urine FEW /HPF; Nitrite,Urine NEG (Negative); Protein,Urine <15 mg/dL mg/dL (Negative); Urobilinogen,Urine < 2.0 mg/dL (<2.0)
--- NOTE | 2017-06-27 02:34 | XRay Report ---
FINAL REPORT PROCEDURE: XR CHEST ROUTINE 2V TECHNIQUE: PA and lateral chest radiographs were obtained. CPT 43645 HISTORY: Non productive cough COMPARISON: 06/07/2016 FINDINGS: Heart: Normal. Mediastinum/Vessels: Normal. Lungs/Pleural space: Normal. Bony thorax: No acute osseous abnormality. Other: IMPRESSION: Normal examination.
--- NOTE | 2017-06-27 04:43 | Emergency Department Report ---
HPI - General Chief Complaint: Urogenital-Male Time Seen by Provider: 06/27/17 03:56 - HPI HPI: Patient here reports that he has nonproductive cough 3 weeks and painful urination 2 days. He is also reporting that he has some bump on his face. Denies any fever or chills. Denies any nausea or vomiting. Denies any concern for STD. He said he had painful urination 2 days ago but he is not having any at present. He said the pain was 20/10 when he was having it but none now. No oajj-[id number] medication taken per patient. Pain at present is 0 out of 10. Denies any chest pain or shortness of breath. Patient has a history of insomnia, GERD, bronchitis. Positive nasal congestion with drainage per patient. Cough is worse at night when he lays down ED Past Medical Hx - Past Medical History Previous Medical History?: Yes Hx GERD: Yes Additional medical history: INSOMNIA / HOLTER MONITOR 2015 Bronchitis - Surgical History Past Surgical History?: No - Family History Family history: hypertension - Social History Smoking Status: Current Every Day Smoker Substance Use Type: None - Medications Home Medications: Home Medications Medication Instructions Recorded Confirmed Last Taken Type Ibuprofen [Motrin 800 MG tab] 800 mg PO Q8HR PRN #30 tablet 10/18/16 04/13/17 Rx predniSONE [Deltasone] 20 mg PO BID #8 tab 04/13/17 Unknown Rx Albuterol Sulfate [Proair 90 mcg IH Q4HR PRN #2 aer.pow.ba 05/15/17 Unknown Rx Respiclick] Benzonatate [Tessalon Perles] 100 mg PO Q8HR PRN #30 capsule 05/15/17 Unknown Rx Ibuprofen [Motrin] 600 mg PO Q8H PRN #30 tablet 05/15/17 Unknown Rx Cephalexin [Keflex] 500 mg PO Q8HR 7 Days #21 cap 06/27/17 Unknown Rx Cetirizine HCl [ZyrTEC] 10 mg PO QAM 14 Days #14 capsule 06/27/17 Unknown Rx Fluticasone [Flonase] 1 spray NS QDAY 14 Days #1 bottle 06/27/17 Unknown Rx guaiFENesin/CODEINE [Robitussin AC] 10 ml PO QHS PRN 7 Days #70 06/27/17 Unknown Rx oral.liqd ED Review of Systems ROS: Stated complaint: PAINFUL URINATION Other details as noted in HPI Comment: All other systems reviewed and negative Constitutional: no symptoms reported Eyes: denies: eye discharge ENT: congestion. denies: ear pain, throat pain Respiratory: cough. denies: orthopnea, shortness of breath, SOB with exertion, SOB at rest, stridor, wheezing Cardiovascular: denies: chest pain, palpitations, dyspnea on exertion, orthopnea , edema, syncope, paroxysmal nocturnal dyspnea Gastrointestinal: denies: abdominal pain, nausea, vomiting, diarrhea, constipation, hematemesis, melena, hematochezia Genitourinary: dysuria. denies: urgency, frequency, hematuria, discharge, testicular pain, testicular mass Musculoskeletal: denies: back pain, joint swelling, arthralgia, myalgia Skin: rash Neurological: denies: headache, weakness Physical Exam - Physical Exam Vital Signs: Vital Signs 06/27/17 01:11 Temperature 98.4 F Pulse Rate 74 Respiratory 16 Rate Blood Pressure 135/83 [Right] O2 Sat by Pulse 96 Oximetry General: 31-year-old male well-nourished well-developed in no acute distress. Physical Exam: Head: Normocephalic, atraumatic, Eyes: Biateral pupils equal and reactive to light, bilateral EOM intact.. Bilateral conjunctival and sclera without injection, normal accommodation. No Mouth: Moist, no pharyngeal exudate or erythema. Uvula is midline and oral airways patent. No peritonsillar abscess. Ears:Bhupinder TM congested erythema, bilaterally EAC without any redness or drainage. No mastoid bone tenderness. Nose: Bhupinder nasal mucosa congested lash erythema with clear drainage. No maxillary or frontal sinus tenderness. Neck: Supple, No Cervical adenopathy, full range of motion and no C-spine tenderness. Cardiovascular: S1, S2. Regular rate .Regular rhythm. No murmur. Capillary refill is less then 3 seconds. Lungs: Clear to auscultate bilaterally. No rhonchi, wheezes or rales. No chest wall tenderness. No chest contusion. No bruising to chest. Positive dry cough Abdomen: Non-tender to palpate in all quadrants, no guarding or rebound tenderness, positive bowel sounds in all quadrants. No CVA tenderness. No hernia, bruit or mass. No rigidity or distention. Extremities: No clubbing, cyanosis or edema. +2 pulses. No neurovascular compromise Skin: Clean, dry and intact. Small pimples noted to the facial area. No signs of infection. Psych: Normal mood and behavior ED Course Vital Signs 06/27/17 01:11 Temperature 98.4 F Pulse Rate 74 Respiratory 16 Rate Blood Pressure 135/83 [Right] O2 Sat by Pulse 96 Oximetry - Reevaluation(s) Reevaluation #1: 06/27/17 06:17 Patient and stable throughout ED stay without any distress. ED Medical Decision Making - Lab Data Lab Results 06/27/17 Range/Units 01:40 Urine Color Yellow (Yellow) Urine Turbidity Cloudy (Clear) Urine pH 7.0 (5.0-7.0) Ur Specific [place] 1.017 (1.003-1.030) Urine Protein <15 mg/dl (Negative) mg/dL Urine Glucose (UA) Neg (Negative) mg/dL Urine Ketones Neg (Negative) mg/dL Urine Blood Sm (Negative) Urine Nitrite Neg (Negative) Urine Bilirubin Neg (Negative) Urine Urobilinogen < 2.0 (<2.0) mg/dL Ur Leukocyte Esterase Neg (Negative) Urine WBC (Auto) 3.0 (0.0-6.0) /HPF Urine RBC (Auto) 2.0 (0.0-6.0) /HPF Urine Mucus Few /HPF Urine culture pending - Radiology Data Radiology results: report reviewed Chest x-ray revealed no acute cardiopulmonary processes - Medical Decision Making ED course: Patient here with multiple complaints including nonproductive cough 3 weeks and chest x-ray was done and negative findings. Patient with upper respiratory infection which started out as viral and has been going on for 3 weeks so,decision to place patient on antibiotic. He should also complaining of bumps on his face and to have scattered pimple to face without any signs of infection.He complained of painful [id number] but reports that he hasn't had any painful urination since 2days ago. Patient urinalysis normal except reports cloudy urine with trace blood. Urine culture sent. I discussed results of the patient to include chest x-ray and urinalysis. He voiced understanding. Patient will be discharged home on Keflex to treat upper respiratory tract infection doesn't ongoing for 3 weeks, guaifenesin with codeine to take at nighttime, Zyrtec and Flonase. Urine culture sent and Keflex will cover bladder infection if urine comes back positive Critical care attestation.: If time is entered above; I have spent that time in minutes in the direct care of this critically ill patient, excluding procedure time. ED Disposition Clinical Impression: Upper respiratory infection with cough and congestion, Dysuria Disposition: DC-01 TO HOME OR SELFCARE Is pt being admited?: No Does the pt Need Aspirin: No Condition: Stable Instructions: Upper Respiratory Infection (ED), Acute Cough (ED), Dysuria (ED) Additional Instructions: Please increase your fluid intake to 2 to 3 L of water and cranberry juice per day Take antibiotic as prescribed Take Zyrtec and Flonase and this will l help to relieve congestion Primary care physician in 5 days and if he do not have a primary care physician he can follow up at [facility]. Prescriptions: guaiFENesin/CODEINE [Robitussin AC] 10 ml PO QHS PRN 7 Days #70 oral.liqd PRN Reason: Cough Cephalexin [Keflex] 500 mg PO Q8HR 7 Days #21 cap Cetirizine HCl [ZyrTEC] 10 mg PO QAM 14 Days #14 capsule Fluticasone [Flonase] 1 spray NS QDAY 14 Days #1 bottle Referrals: [facility] [Outside] - 07/01/17 Forms: Accompanied Note, Work/School Release Form(ED)
[2017-06-27 06:36] VITALS: BP 113/78
== END 2017-06-27 06:38 | disposition home or self-care (01) ==
LOC: ED 00:14
DX: J06.9 Acute upper respiratory infection, unspecified (principal); R30.0 Dysuria; K21.9 Gastro-esophageal reflux disease without esophagitis; F17.200 Nicotine dependence, unspecified, uncomplicated
CPT/HCPCS: 71020; 81001; 87086; 99283

== ENCOUNTER 2017-07-23 18:12 | Emergency (ER) | payer MEDICAID | END 2017-07-23 18:13 | disposition left against medical advice (07) | LOC: ED 18:12 | DX: R10.30 Lower abdominal pain, unspecified (principal); Z53.21 Procedure and treatment not carried out due to patient leaving prior to being seen by health care provider ==

== ENCOUNTER 2017-12-29 20:58 | Emergency (ER) | payer MEDICAID ==
[2017-12-29 21:28] VITALS: BP 118/81
--- NOTE | 2017-12-30 04:10 | Emergency Department Report ---
- General Chief Complaint: Extremity Injury, Upper Stated Complaint: COUGH Time Seen by Provider: 12/30/17 04:02 Source: patient Mode of arrival: Ambulatory Limitations: No Limitations - History of Present Illness Initial Comments: 32-year-old -[place] male comes in reporting he's had a persistent cough and feeling feverish for the last few days. Patient reports that he has not had much of a cough today and his temperature was 98.4 that he reported. Patient also admits to mucus in his throat. Patient does have a history of GERD and seasonal allergies and currently is not taking any of his omeprazole or Claritin at this time. Patient does admit that he has a habit of smoking cigarettes. Patient reports that he sweats on top of his head the patient has a head on while being in fast track. -: days(s) (3) Severity: severe (no coughing today patient reported) Severity scale (0 -10): 8 Worsens With: nothing Associated Symptoms: fever (reported temperature 98.4), other (clearing his throat). denies: headache, rhinorrhea, nasal congestion, sore throat, shortness of breath, nausea, vomiting, diarrhea Treatments Prior to Arrival: none - Related Data Previous Rx's Medication Instructions Recorded Last Taken Type Ibuprofen [Motrin 800 MG tab] 800 mg PO Q8HR PRN #30 tablet 10/18/16 04/11/17 Rx predniSONE [Deltasone] 20 mg PO BID #8 tab 04/13/17 Unknown Rx Albuterol Sulfate [Proair 90 mcg IH Q4HR PRN #2 aer.pow.ba 05/15/17 Unknown Rx Respiclick] Benzonatate [Tessalon Perles] 100 mg PO Q8HR PRN #30 capsule 05/15/17 Unknown Rx Ibuprofen [Motrin] 600 mg PO Q8H PRN #30 tablet 05/15/17 Unknown Rx Cephalexin [Keflex] 500 mg PO Q8HR 7 Days #21 cap 06/27/17 Unknown Rx Cetirizine HCl [ZyrTEC] 10 mg PO QAM 14 Days #14 capsule 06/27/17 Unknown Rx Fluticasone [Flonase] 1 spray NS QDAY 14 Days #1 bottle 06/27/17 Unknown Rx guaiFENesin/CODEINE [Robitussin AC] 10 ml PO QHS PRN 7 Days #70 06/27/17 Unknown Rx oral.liqd Allergies Allergy/AdvReac Type Severity Reaction Status Date / Time No Known Allergies Allergy Verified 06/07/16 18:04 ED Review of Systems ROS: Stated complaint: COUGH Other details as noted in HPI Constitutional: fever (98.4 MAXIMUM TEMPERATURE) Eyes: denies: eye pain, eye discharge, vision change ENT: denies: ear pain, throat pain Respiratory: cough (has resolved since being in the emergency room), other ( increased mucus in his throat) Cardiovascular: denies: chest pain, palpitations Endocrine: no symptoms reported Gastrointestinal: denies: abdominal pain, nausea, diarrhea Genitourinary: denies: urgency, dysuria Musculoskeletal: denies: back pain, joint swelling, arthralgia Skin: denies: rash, lesions Neurological: denies: headache, weakness, paresthesias Psychiatric: denies: anxiety, depression Hematological/Lymphatic: denies: easy bleeding, easy bruising ED Past Medical Hx - Past Medical History Hx GERD: Yes Additional medical history: INSOMNIA / HOLTER MONITOR 2015 Bronchitis - Social History Smoking Status: Current Every Day Smoker Substance Use Type: None - Medications Home Medications: Home Medications Medication Instructions Recorded Confirmed Last Taken Type Ibuprofen [Motrin 800 MG tab] 800 mg PO Q8HR PRN #30 tablet 10/18/16 04/13/17 Rx predniSONE [Deltasone] 20 mg PO BID #8 tab 04/13/17 Unknown Rx Albuterol Sulfate [Proair 90 mcg IH Q4HR PRN #2 aer.pow.ba 05/15/17 Unknown Rx Respiclick] Benzonatate [Tessalon Perles] 100 mg PO Q8HR PRN #30 capsule 05/15/17 Unknown Rx Ibuprofen [Motrin] 600 mg PO Q8H PRN #30 tablet 05/15/17 Unknown Rx Cephalexin [Keflex] 500 mg PO Q8HR 7 Days #21 cap 06/27/17 Unknown Rx Cetirizine HCl [ZyrTEC] 10 mg PO QAM 14 Days #14 capsule 06/27/17 Unknown Rx Fluticasone [Flonase] 1 spray NS QDAY 14 Days #1 bottle 06/27/17 Unknown Rx guaiFENesin/CODEINE [Robitussin AC] 10 ml PO QHS PRN 7 Days #70 06/27/17 Unknown Rx oral.liqd ED Physical Exam - General Limitations: No Limitations General appearance: alert, in no apparent distress - Head Head exam: Present: atraumatic, normocephalic - ENT ENT exam: Present: mucous membranes moist - Respiratory Respiratory exam: Present: normal lung sounds bilaterally. Absent: respiratory distress - Cardiovascular Cardiovascular Exam: Present: regular rate, normal rhythm. Absent: systolic murmur, diastolic murmur, rubs, gallop - Neurological Exam Neurological exam: Present: alert, oriented X3 - Psychiatric Psychiatric exam: Present: normal affect, normal mood - Skin Skin exam: Present: warm, dry, intact, normal color. Absent: rash ED Course Vital Signs 12/29/17 12/30/17 21:25 04:24 Temperature 99.5 F Pulse Rate 89 78 Respiratory 18 16 Rate Blood Pressure 118/81 O2 Sat by Pulse 96 99 Oximetry ED Medical Decision Making - Medical Decision Making Patient has been evaluated with this provider fast track. Physical examination is all within normal limits. Patient is afebrile. Discussed patient to increase his fluid intake try taking multivitamins follow- up with his primary care provider Critical care attestation.: If time is entered above; I have spent that time in minutes in the direct care of this critically ill patient, excluding procedure time. ED Disposition Clinical Impression: Feels feverish Disposition: DC-01 TO HOME OR SELFCARE Is pt being admited?: No Does the pt Need Aspirin: No Condition: Stable Additional Instructions: Please take your omeprazole and Zyrtec's if he feel there are not working you need to follow-up with her primary care provider. I have listed a PCP for you to follow up if you do not have one. Referrals: PRIMARY CARE [Primary Care Provider] - 3-5 Days [facility] [Provider Group] - 3-5 Days Forms: Work/School Release Form(ED)
== END 2017-12-30 04:24 | disposition home or self-care (01) ==
LOC: ED 20:58
DX: R50.9 Fever, unspecified (principal); K21.9 Gastro-esophageal reflux disease without esophagitis; F17.200 Nicotine dependence, unspecified, uncomplicated
CPT/HCPCS: 99282

== ENCOUNTER 2018-09-15 02:23 | Emergency (ER) | payer MEDICAID ==
[2018-09-15] MEDS ORDERED: ASPIRIN PO ONE (02:32)
[2018-09-15 02:33] VITALS: BP 120/80
--- NOTE | 2018-09-15 03:14 | XRay Report ---
PROCEDURE: XR CHEST 1V AP TECHNIQUE: Chest radiograph single view. HISTORY: Chest Pain COMPARISONS: None . FINDINGS: Heart: Normal. Mediastinum/Vessels: Normal. Lungs/Pleural space: Normal. Bony thorax: No acute osseous abnormality. Life support devices: None. IMPRESSION: No acute cardiopulmonary abnormality. This document is electronically signed by Anna Marie Reilly MD., September 15 2018 03:11:41 AM ET
[2018-09-15 03:35] LABS: Color,Urine Yellow (Yellow)
[2018-09-15 03:36] LABS: Amorphous Crystals,Urine 1+; Bilirubin,Urine NEG (Negative); Blood,Urine NEG (Negative); Mucus,Urine FEW /HPF; Protein,Urine <15 mg/dL mg/dL (Negative)
[2018-09-15 03:39] LABS: WBC,Urine < 1.0 /HPF (0.0-6.0)
--- NOTE | 2018-09-15 06:57 | Emergency Department Report ---
ED General Adult HPI - General Chief complaint: Chest Pain Stated complaint: CHEST PAIN/DIZZINESS Time Seen by Provider: 09/15/18 06:45 Source: patient Mode of arrival: Ambulatory Limitations: No Limitations - History of Present Illness Severity scale (0 -10): 8 - Related Data Previous Rx's Medication Instructions Recorded Last Taken Type Ibuprofen [Motrin 800 MG tab] 800 mg PO Q8HR PRN #30 tablet 10/18/16 04/11/17 Rx predniSONE [Deltasone] 20 mg PO BID #8 tab 04/13/17 Unknown Rx Albuterol Sulfate [Proair 90 mcg IH Q4HR PRN #2 aer.pow.ba 05/15/17 Unknown Rx Respiclick] Ibuprofen [Motrin] 600 mg PO Q8H PRN #30 tablet 05/15/17 Unknown Rx Fluticasone [Flonase] 1 spray NS QDAY 14 Days #1 bottle 06/27/17 Unknown Rx cephALEXin [Keflex] 500 mg PO Q8HR 7 Days #21 cap 06/27/17 Unknown Rx guaiFENesin/CODEINE [Robitussin AC] 10 ml PO QHS PRN 7 Days #70 06/27/17 Unknown Rx oral.liqd Cyclobenzaprine HCl [Flexeril 5 MG 5 mg PO TID #10 tab 05/30/18 Unknown Rx TAB] Doxycycline [Vibramycin CAP] 100 mg PO Q12HR #14 capsule 05/30/18 Unknown Rx Naproxen [Naprosyn] 500 mg PO BID #10 tablet 05/30/18 Unknown Rx Benzonatate [Tessalon Perles] 100 mg PO Q8HR PRN #15 capsule 09/15/18 Unknown Rx Cetirizine HCl [ZyrTEC] 10 mg PO QAM 14 Days #14 capsule 09/15/18 Unknown Rx Allergies Allergy/AdvReac Type Severity Reaction Status Date / Time No Known Allergies Allergy Verified 06/07/16 18:04 ED Review of Systems ROS: Stated complaint: CHEST PAIN/DIZZINESS Other details as noted in HPI ED Past Medical Hx - Past Medical History Previous Medical History?: Yes Hx GERD: Yes Additional medical history: INSOMNIA / HOLTER MONITOR 2015 Bronchitis - Surgical History Past Surgical History?: No - Social History Smoking Status: Current Some Day Smoker Substance Use Type: None - Medications Home Medications: Home Medications Medication Instructions Recorded Confirmed Last Taken Type Ibuprofen [Motrin 800 MG tab] 800 mg PO Q8HR PRN #30 tablet 10/18/16 04/13/17 04/11/17 Rx predniSONE [Deltasone] 20 mg PO BID #8 tab 04/13/17 Unknown Rx Albuterol Sulfate [Proair 90 mcg IH Q4HR PRN #2 aer.pow.ba 05/15/17 Unknown Rx Respiclick] Ibuprofen [Motrin] 600 mg PO Q8H PRN #30 tablet 05/15/17 Unknown Rx Fluticasone [Flonase] 1 spray NS QDAY 14 Days #1 bottle 06/27/17 Unknown Rx cephALEXin [Keflex] 500 mg PO Q8HR 7 Days #21 cap 06/27/17 Unknown Rx guaiFENesin/CODEINE [Robitussin AC] 10 ml PO QHS PRN 7 Days #70 06/27/17 Unknown Rx oral.liqd Cyclobenzaprine HCl [Flexeril 5 MG 5 mg PO TID #10 tab 05/30/18 Unknown Rx TAB] Doxycycline [Vibramycin CAP] 100 mg PO Q12HR #14 capsule 05/30/18 Unknown Rx Naproxen [Naprosyn] 500 mg PO BID #10 tablet 05/30/18 Unknown Rx Benzonatate [Tessalon Perles] 100 mg PO Q8HR PRN #15 capsule 09/15/18 Unknown Rx Cetirizine HCl [ZyrTEC] 10 mg PO QAM 14 Days #14 capsule 09/15/18 Unknown Rx ED Physical Exam - General Limitations: No Limitations ED Course Vital Signs 09/15/18 02:28 Temperature 98.6 F Pulse Rate 97 H Respiratory 18 Rate Blood Pressure 120/80 O2 Sat by Pulse 96 Oximetry Critical care attestation.: If time is entered above; I have spent that time in minutes in the direct care of this critically ill patient, excluding procedure time. ED Disposition Clinical Impression: Cough, Increased frequency of urination, Nasal congestion Disposition: DC-01 TO HOME OR SELFCARE Is pt being admited?: No Does the pt Need Aspirin: No Condition: Stable Instructions: Acute Cough (ED), Allergic Rhinitis (ED) Additional Instructions: Please take medications as prescribed. Follow with primary care provider for symptoms persist or gets worse. Prescriptions: Benzonatate [Tessalon Perles] 100 mg PO Q8HR PRN #15 capsule PRN Reason: Cough Cetirizine HCl [ZyrTEC] 10 mg PO QAM 14 Days #14 capsule Referrals: PRIMARY CARE, [Primary Care Provider] - 3-5 Days [facility] [Other] - 3-5 Days
== END 2018-09-15 07:05 | disposition home or self-care (01) ==
LOC: ED 02:23
DX: R05 Cough (principal); R35.0 Frequency of micturition; R09.81 Nasal congestion; K21.9 Gastro-esophageal reflux disease without esophagitis; F17.200 Nicotine dependence, unspecified, uncomplicated; G47.00 Insomnia, unspecified; Z79.899 Other long term (current) drug therapy
CPT/HCPCS: 71045; 81001; 93005; 93010

== ENCOUNTER 2019-01-23 23:25 | Emergency (ER) | payer MEDICAID ==
[2019-01-24 00:26] LABS: Amorphous Crystals,Urine 1+; Bilirubin,Urine NEG (Negative); Blood,Urine LG (Negative); Color,Urine Yellow (Yellow); Mucus,Urine 1+ /HPF
[2019-01-24 00:29] LABS: RBC,Urine > 182.0 /HPF (0.0-6.0); WBC,Urine < 1.0 /HPF (0.0-6.0)
[2019-01-24 00:50] LABS: Basophils # (Auto) 0.1 K/mm3 (0.0-0.1); Basophils % (Auto) 0.7 % (0.0-1.8); Eosinophils # (Auto) 0.1 K/mm3 (0.0-0.4); Eosinophils % (Auto) 0.7 % (0.0-4.3); Hematocrit 44.3 % (35.5-45.6); Lymphocytes # (Auto) 1.5 K/mm3 (1.2-5.4); Lymphocytes % (Auto) 18.3 % (13.4-35.0); Mean Corpuscular HGB Conc 34 % (32-34); Mean Corpuscular Volume 86 fl (84-94); Monocytes # (Auto) 0.4 K/mm3 (0.0-0.8); Monocytes % (Auto) 5.3 % (0.0-7.3); Platelet Count 206 K/mm3 (140-440); Red Blood Count 5.17 M/mm3 (3.65-5.03); Red Cell Distribution Width 14.9 % (13.2-15.2)
[2019-01-24 01:04] LABS: BUN/Creatinine Ratio 12; Blood Urea Nitrogen 11 mg/dL (9-20); Calcium 8.8 mg/dL (8.4-10.2); Hemolysis Index 8
[2019-01-24] MEDS ORDERED: TORADOL IV ONE (01:57)
[2019-01-24] MEDS ORDERED: ZOFRAN IV ONE (01:57)
[2019-01-24] MEDS ORDERED: NACL 0.9% 1000 ML 1,000 ML IV ONE (01:57)
--- NOTE | 2019-01-24 02:39 | Cat Scan Report ---
CT ABDOMEN AND PELVIS WITHOUT CONTRAST HISTORY: Abdominal pain. Right pelvic pain. History of renal stones. COMPARISON: Acute abdominal series from 09/11/2016. TECHNIQUE: Axial, coronal and sagittal CT imaging of the abdomen and pelvis was performed without co ntrast. Lack of intravenous contrast limits evaluation of the vascular and solid organs. All CT sca ns at this location are performed using CT dose reduction for ALARA by means of automated exposure co ntrol. FINDINGS: Motion artifact limits portions of this exam. LOWER CHEST: No significant abnormality. LIVER: No significant abnormality. BILIARY: No significant abnormality. PANCREAS: No significant abnormality. SPLEEN: No significant abnormality. ADRENALS: No significant abnormality. KIDNEYS AND URETERS: A right UPJ stone measures 3 mm with secondary mild hydronephrosis. No additiona l stones are seen. The left renal collecting system and ureter are normal in caliber. No suspicious r enal lesions. GI TRACT: No significant abnormality of the stomach or small bowel. There is colonic diverticulosis w ithout evidence of diverticulitis. Unremarkable appendix. PERITONEUM: No free fluid. No free air. No fluid collection. LYMPH NODES: No significant adenopathy. VASCULATURE: No significant abnormality. URINARY BLADDER: No significant abnormality. REPRODUCTIVE ORGANS: No significant abnormality. ADDITIONAL FINDINGS: None. SKELETAL SYSTEM: No significant abnormality. IMPRESSION: 1. 3 mm right UPJ stone with associated mild hydronephrosis. 2. Colonic diverticulosis without evidence of diverticulitis. Signer Name: Dougie Valentine MD Signed: 01/24/2019 2:34 AM Workstation Name: [employer]
--- NOTE | 2019-01-24 02:43 | Emergency Department Report ---
ED Male HPI - General Chief complaint: Abdominal Pain Stated complaint: KIDNEY STONES/LIGHTHEADED Time Seen by Provider: 01/24/19 01:56 Source: patient Mode of arrival: Ambulatory Limitations: No Limitations - History of Present Illness Initial comments: Patient is a 33-year-old male who presents for right flank pain radiating to suprapubic area has history of kidney stones last 6 months ago there is no fever chills no nausea vomiting dysuria is described as 7/10 aching exacerbated by terrell relieved by nothing, pt denies hematuria or penile discharge. MD Complaint: dysuria Onset/Timin -: Gradual, week(s) Location: right flank Radiation: none Severity: moderate Severity scale (0 -10): 5 Quality: aching Consistency: constant Improves with: none Worsens with: urination, palpation, movement dysuria, nausea/vomiting - Related Data Sexually active: Yes Previous Rx's Medication Instructions Recorded Last Taken Type Ibuprofen [Motrin 800 MG tab] 800 mg PO Q8HR PRN #30 tablet 10/18/16 04/11/17 Rx predniSONE [Deltasone] 20 mg PO BID #8 tab 04/13/17 Unknown Rx Albuterol Sulfate [Proair 90 mcg IH Q4HR PRN #2 aer.pow.ba 05/15/17 Unknown Rx Respiclick] Ibuprofen [Motrin] 600 mg PO Q8H PRN #30 tablet 05/15/17 Unknown Rx Fluticasone [Flonase] 1 spray NS QDAY 14 Days #1 bottle 06/27/17 Unknown Rx cephALEXin [Keflex] 500 mg PO Q8HR 7 Days #21 cap 06/27/17 Unknown Rx guaiFENesin/CODEINE [Robitussin AC] 10 ml PO QHS PRN 7 Days #70 06/27/17 Unknown Rx oral.liqd Cyclobenzaprine HCl [Flexeril 5 MG 5 mg PO TID #10 tab 05/30/18 Unknown Rx TAB] DOXYCYCLINE Hyclate [Vibramycin 100 mg PO Q12HR #14 capsule 05/30/18 Unknown Rx CAP] Naproxen [Naprosyn] 500 mg PO BID #10 tablet 05/30/18 Unknown Rx Benzonatate [Tessalon Perles] 100 mg PO Q8HR PRN #15 capsule 09/15/18 Unknown Rx Cetirizine HCl [ZyrTEC 10mg cap] 10 mg PO QAM 14 Days #14 capsule 09/15/18 Unknown Rx Tamsulosin [Flomax] 0.4 mg PO QDAY 14 Days #12 cap 01/24/19 Unknown Rx traMADol [Ultram] 50 mg PO Q6HR PRN #12 tablet 01/24/19 Unknown Rx Allergies Allergy/AdvReac Type Severity Reaction Status Date / Time No Known Allergies Allergy Verified 06/07/16 18:04 ED Review of Systems ROS: Stated complaint: KIDNEY STONES/LIGHTHEADED Other details as noted in HPI Constitutional: denies: chills, fever Eyes: denies: eye pain, eye discharge, vision change ENT: denies: ear pain, throat pain Respiratory: denies: cough, shortness of breath, wheezing Cardiovascular: denies: chest pain, palpitations Endocrine: no symptoms reported Gastrointestinal: abdominal pain. denies: diarrhea, constipation, melena, hematochezia Genitourinary: urgency, dysuria, hematuria. denies: frequency Musculoskeletal: denies: back pain, joint swelling, arthralgia Skin: denies: rash, lesions Neurological: denies: headache, weakness, paresthesias Psychiatric: denies: anxiety, depression Hematological/Lymphatic: denies: easy bleeding, easy bruising ED Past Medical Hx - Past Medical History Previous Medical History?: Yes Hx GERD: Yes Hx Kidney Stones: Yes Additional medical history: INSOMNIA / HOLTER MONITOR 2015 Bronchitis - Surgical History Past Surgical History?: Yes - Social History Smoking Status: Current Some Day Smoker Substance Use Type: None - Medications Home Medications: Home Medications Medication Instructions Recorded Confirmed Last Taken Type Ibuprofen [Motrin 800 MG tab] 800 mg PO Q8HR PRN #30 tablet 10/18/16 04/13/17 04/11/17 Rx predniSONE [Deltasone] 20 mg PO BID #8 tab 04/13/17 Unknown Rx Albuterol Sulfate [Proair 90 mcg IH Q4HR PRN #2 aer.pow.ba 05/15/17 Unknown Rx Respiclick] Ibuprofen [Motrin] 600 mg PO Q8H PRN #30 tablet 05/15/17 Unknown Rx Fluticasone [Flonase] 1 spray NS QDAY 14 Days #1 bottle 06/27/17 Unknown Rx cephALEXin [Keflex] 500 mg PO Q8HR 7 Days #21 cap 06/27/17 Unknown Rx guaiFENesin/CODEINE [Robitussin AC] 10 ml PO QHS PRN 7 Days #70 06/27/17 Unknown Rx oral.liqd Cyclobenzaprine HCl [Flexeril 5 MG 5 mg PO TID #10 tab 05/30/18 Unknown Rx TAB] DOXYCYCLINE Hyclate [Vibramycin 100 mg PO Q12HR #14 capsule 05/30/18 Unknown Rx CAP] Naproxen [Naprosyn] 500 mg PO BID #10 tablet 05/30/18 Unknown Rx Benzonatate [Tessalon Perles] 100 mg PO Q8HR PRN #15 capsule 09/15/18 Unknown Rx Cetirizine HCl [ZyrTEC 10mg cap] 10 mg PO QAM 14 Days #14 capsule 09/15/18 Unknown Rx Tamsulosin [Flomax] 0.4 mg PO QDAY 14 Days #12 cap 01/24/19 Unknown Rx traMADol [Ultram] 50 mg PO Q6HR PRN #12 tablet 01/24/19 Unknown Rx ED Physical Exam - General Limitations: No Limitations General appearance: alert, in no apparent distress - Head Head exam: Present: atraumatic, normocephalic - Eye Eye exam: Present: normal appearance, PERRL, EOMI Pupils: Present: normal accommodation - ENT ENT exam: Present: normal orophraynx, mucous membranes moist - Neck Neck exam: Present: normal inspection, full ROM. Absent: tenderness, meningis mus, lymphadenopathy, thyromegaly - Respiratory Respiratory exam: Present: normal lung sounds bilaterally, rhonchi. Absent: respiratory distress, wheezes - Cardiovascular Cardiovascular Exam: Present: regular rate, normal rhythm, normal heart sounds. Absent: systolic murmur, diastolic murmur, rubs, gallop - GI/Abdominal GI/Abdominal exam: Present: soft, tenderness (right flank ), normal bowel sounds. Absent: distended, guarding, rebound, rigid, bruit, hernia - Rectal Rectal exam: Present: deferred - exam: Present: other (deferred per patient ) External exam: Present: normal external exam - Extremities Exam Extremities exam: Present: normal inspection - Back Exam Back exam: Present: normal inspection, full ROM, CVA tenderness (L), muscle spasm, paraspinal tenderness, vertebral tenderness. Absent: tenderness, rash noted - Neurological Exam Neurological exam: Present: alert, oriented X3, CN II-XII intact, normal gait, reflexes normal - Psychiatric Psychiatric exam: Present: normal affect, normal mood - Skin Skin exam: Present: warm, dry, intact, normal color. Absent: rash ED Course Vital Signs 01/23/19 01/24/19 23:43 02:22 Temperature 98.2 F Pulse Rate 78 Respiratory 18 16 Rate Blood Pressure 116/78 O2 Sat by Pulse 98 Oximetry ED Medical Decision Making - Lab Data Result diagrams: 01/24/19 00:11 01/24/19 00:11 Labs 01/24/19 01/24/19 01/24/19 00:05 00:11 00:11 WBC 8.3 RBC 5.17 H Hgb 15.0 Hct 44.3 MCV 86 MCH 29 MCHC 34 RDW 14.9 Plt Count 206 Lymph % (Auto) 18.3 [place]idan % (Auto) 5.3 Eos % (Auto) 0.7 Baso % (Auto) 0.7 Lymph # 1.5 Sheridan # 0.4 Eos # 0.1 Baso # 0.1 Seg Neutrophils % 75.0 H Seg Neutrophils # 6.2 Sodium 142 Potassium 4.5 Chloride 104.3 Carbon Dioxide 28 Anion Gap 14 BUN 11 Creatinine 0.9 Estimated GFR > 60 BUN/Creatinine Ratio 12 Glucose 108 H Calcium 8.8 Urine Color Yellow Urine Turbidity Cloudy Urine pH 7.0 Ur Specific Worton 1.024 Urine Protein 30 mg/dl Urine Glucose (UA) Neg Urine Ketones Neg Urine Blood Lg Urine Nitrite Neg Urine Bilirubin Neg Urine Urobilinogen 4.0 Ur Leukocyte Esterase Neg Urine WBC (Auto) < 1.0 Urine RBC (Auto) > 182.0 U Epithel Cells (Auto) 2.0 Amorphous Crystals 1+ Urine Mucus 1+ - EKG Data Rate: normal - Radiology Data Radiology results: report reviewed, image reviewed Ordering Physician: KODY PARKER NP Date of Service: 01/24/19 Procedure(s): CT abdomen pelvis wo con Accession Number(s): [id number] cc: KODY PARKER NP CT ABDOMEN AND PELVIS WITHOUT CONTRAST HISTORY: Abdominal pain. Right pelvic pain. History of renal stones. COMPARISON: Acute abdominal series from 09/11/2016. TECHNIQUE: Axial, coronal and sagittal CT imaging of the abdomen and pelvis was performed without contrast. Lack of intravenous contrast limits evaluation of the vascular and solid organs. All CT scans at this location are performed using CT dose reduction for ALARA by means of automated exposure control. FINDINGS: Motion artifact limits portions of this exam. LOWER CHEST: No significant abnormality. LIVER: No significant abnormality. BILIARY: No significant abnormality. PANCREAS: No significant abnormality. SPLEEN: No significant abnormality. ADRENALS: No significant abnormality. KIDNEYS AND URETERS: A right UPJ stone measures 3 mm with secondary mild hydronephrosis. No additional stones are seen. The left renal collecting system and ureter are normal in caliber. No suspicious renal lesions. GI TRACT: No significant abnormality of the stomach or small bowel. There is colonic diverticulosis without evidence of diverticulitis. Unremarkable appendix. PERITONEUM: No free fluid. No free air. No fluid collection. LYMPH NODES: No significant adenopathy. VASCULATURE: No significant abnormality. URINARY BLADDER: No significant abnormality. REPRODUCTIVE ORGANS: No significant abnormality. ADDITIONAL FINDINGS: None. SKELETAL SYSTEM: No significant abnormality. IMPRESSION: 1. 3 mm right UPJ stone with associated mild hydronephrosis. 2. Colonic diverticulosis without evidence of diverticulitis. Signer Name: Dougie Valentine MD Signed: 01/24/2019 2:34 AM Workstation Name: [id number] Transcribed By: [place] Dictated By: Dougie Valentine MD Electronically Authenticated By: Dougie Valentine MD Signed Date/Time: 01/24/19233 DD/ 0 TD/TT: - Medical Decision Making pain improved, CT Abd Pelvis Right UVJ 3 cm there is currently no hematuria dysuria or freqency pt no fever or chills, , Critical care attestation.: If time is entered above; I have spent that time in minutes in the direct care of this critically ill patient, excluding procedure time. ED Disposition Clinical Impression: Renal stones, Diverticulosis Disposition: - TO HOME OR SELFCARE Is pt being admited?: No Does the pt Need Aspirin: No Condition: Stable Instructions: Kidney Stones (ED) Prescriptions: Tamsulosin [Flomax] 0.4 mg PO QDAY 14 Days #12 cap traMADol [Ultram] 50 mg PO Q6HR PRN #12 tablet PRN Reason: Pain Referrals: THANG CARPENTER MD [Primary Care Provider] - 3-5 Days STEVEN DELEON MD [Staff Physician] - 3-5 Days Forms: Work/School Release Form(ED) Time of Disposition: 11:00
[2019-01-24 04:11] VITALS: BP 112/63
== END 2019-01-24 04:09 | disposition home or self-care (01) ==
LOC: ED 23:25
DX: K57.90 Diverticulosis of intestine, part unspecified, without perforation or abscess without bleeding (principal); N20.0 Calculus of kidney; K21.0 Gastro-esophageal reflux disease with esophagitis; F17.200 Nicotine dependence, unspecified, uncomplicated; Z79.899 Other long term (current) drug therapy
CPT/HCPCS: 36415; 74176; 80048; 81001; 85025; 96361; 96374; 96375; 99284; J1885; J2405; J7030

== ENCOUNTER 2019-04-24 23:55 | Emergency (ER) | payer MEDICAID ==
[2019-04-25 00:51] LABS: Basophils # (Auto) 0.1 K/mm3 (0.0-0.1); Basophils % (Auto) 0.5 % (0.0-1.8); Hemoglobin 14.8 gm/dl (11.8-15.2); Lymphocytes # (Auto) 1.6 K/mm3 (1.2-5.4); Lymphocytes % (Auto) 17.1 % (13.4-35.0); Mean Corpuscular HGB Conc 35 % (32-34); Mean Corpuscular Volume 83 fl (84-94); Monocytes # (Auto) 0.3 K/mm3 (0.0-0.8); Monocytes % (Auto) 3.2 % (0.0-7.3); Platelet Count 203 K/mm3 (140-440); Red Blood Count 5.15 M/mm3 (3.65-5.03); Red Cell Distribution Width 14.4 % (13.2-15.2)
[2019-04-25 01:14] LABS: BUN/Creatinine Ratio 9; Blood Urea Nitrogen 8 mg/dL (9-20); Calcium 9.4 mg/dL (8.4-10.2); Hemolysis Index 22
--- NOTE | 2019-04-25 02:52 | Emergency Department Report ---
ED Psych HPI - General Chief Complaint: Psych Stated Complaint: POSSIBLE MARIJUANA INGESTION Time Seen by Provider: 04/25/19 02:42 Source: patient Mode of arrival: Ambulatory - History of Present Illness Initial Comments: Patient is 33 years old male with no significant past medical history except for depression. Patient presented to the ER stating that he was doing fine until this evening when his friend gave him edible chocolates. Patient stated that since then he has been hallucinating and seeing things. Patient stated that he became very anxious and his heart start racing. Patient however denied any chest pain or shortness of breath. Patient also denied any auditory hallucination. No suicidal or homicidal ideation. MD Complaint: altered mental status - Related Data Home Medications Medication Instructions Recorded Confirmed Last Taken No Known Home Medications [No 04/25/19 04/25/19 Unknown Reported Home Medications] Allergies Allergy/AdvReac Type Severity Reaction Status Date / Time No Known Allergies Allergy Verified 06/07/16 18:04 ED Review of Systems ROS: Stated complaint: POSSIBLE MARIJUANA INGESTION Other details as noted in HPI Comment: All other systems reviewed and negative Constitutional: denies: chills, fever Respiratory: denies: cough, shortness of breath, SOB with exertion Cardiovascular: palpitations. denies: chest pain Gastrointestinal: denies: abdominal pain, nausea, vomiting ED Past Medical Hx - Past Medical History Previous Medical History?: Yes Hx GERD: Yes Hx Kidney Stones: Yes Additional medical history: INSOMNIA / HOLTER MONITOR 2016 Bronchitis, PREDIABETIC - Social History Smoking Status: Current Some Day Smoker Substance Use Type: Marijuana - Medications Home Medications: Home Medications Medication Instructions Recorded Confirmed Last Taken Type No Known Home Medications [No 04/25/19 04/25/19 Unknown History Reported Home Medications] ED Physical Exam - General Limitations: No Limitations General appearance: alert, in no apparent distress - Head Head exam: Present: atraumatic, normocephalic, normal inspection - Eye Eye exam: Present: normal appearance - ENT ENT exam: Present: normal exam, normal orophraynx, mucous membranes moist - Neck Neck exam: Present: normal inspection, full ROM. Absent: tenderness, meningismus, lymphadenopathy, thyromegaly - Respiratory Respiratory exam: Present: normal lung sounds bilaterally - Cardiovascular Cardiovascular Exam: Present: tachycardia - GI/Abdominal GI/Abdominal exam: Present: soft, normal bowel sounds. Absent: distended, tenderness, guarding, rebound, rigid, organomegaly, mass, bruit, pulsatile mass, hernia - Extremities Exam Extremities exam: Present: normal inspection, full ROM, normal capillary refill - Back Exam Back exam: Present: normal inspection, full ROM. Absent: CVA tenderness (R), CVA tenderness (L) - Neurological Exam Neurological exam: Present: alert, oriented X3, CN II-XII intact, normal gait, reflexes normal. Absent: motor sensory deficit - Psychiatric Psychiatric exam: Present: normal mood, anxious. Absent: depressed, agitated, flat affect, manic, homicidal ideation, suicidal ideation - Skin Skin exam: Present: warm, intact, normal color ED Course Vital Signs 04/25/19 04/25/19 04/25/19 00:01 00:11 09:17 Temperature 98.2 F 98.2 F Pulse Rate 145 H 151 H Respiratory 20 20 16 Rate Blood Pressure 116/65 116/65 Blood Pressure [Left] O2 Sat by Pulse 95 96 Oximetry 04/25/19 09:25 Temperature 98.2 F Pulse Rate 83 Respiratory 16 Rate Blood Pressure Blood Pressure 109/78 [Left] O2 Sat by Pulse Oximetry ED Medical Decision Making - Lab Data Result diagrams: 04/25/19 00:25 04/25/19 00:25 Critical care attestation.: If time is entered above; I have spent that time in minutes in the direct care of this critically ill patient, excluding procedure time. ED Disposition Clinical Impression: Marijuana use Disposition: DC-01 TO HOME OR SELFCARE Is pt being admited?: No Condition: Stable Instructions: Cannabis Abuse (ED) Referrals: THANG CARPENTER MD [Primary Care Provider] - 3-5 Days
[2019-04-25 04:57] LABS: Bilirubin,Urine NEG (Negative); Blood,Urine SM (Negative); Calcium Oxalate Crystals,Urine 1+; Color,Urine Yellow (Yellow); Mucus,Urine 3+ /HPF; Protein,Urine <15 mg/dL mg/dL (Negative); Urobilinogen,Urine < 2.0 mg/dL (<2.0)
[2019-04-25 05:03] LABS: Amphetamine Screen,Urine PRESUMPTIVE NEGATIVE; Benzodiazepines Screen,Urine PRESUMPTIVE NEGATIVE; Cocaine Screen,Urine PRESUMPTIVE NEGATIVE; Methadone Screen,Urine PRESUMPTIVE NEGATIVE; Opiate Screen,Urine PRESUMPTIVE NEGATIVE
[2019-04-25 05:16] LABS: Cannabinoid Screen,Urine PRESUMPTIVE POSITIVE
[2019-04-25 09:27] VITALS: BP 109/78
[2019-04-25] MEDS ORDERED: IBUPROFEN PO ONE ×2 (09:32→09:35)
== END 2019-04-25 13:35 | disposition home or self-care (01) ==
LOC: ED 23:55
DX: G47.00 Insomnia, unspecified (principal); R00.0 Tachycardia, unspecified; K21.9 Gastro-esophageal reflux disease without esophagitis; F17.200 Nicotine dependence, unspecified, uncomplicated; F12.10 Cannabis abuse, uncomplicated; Z79.899 Other long term (current) drug therapy
CPT/HCPCS: 36415; 80048; 80307; 80320; 81001; 85025; 93005; 93010; G0480

== ENCOUNTER 2020-03-17 15:51 | Emergency (ER) | payer MEDICAID ==
[2020-03-17] MEDS ORDERED: ASPIRIN 325 MG TAB PO ONE (16:09)
[2020-03-17 16:37] LABS: Basophils # (Auto) 0.2 K/mm3 (0.0-0.1); Basophils % (Auto) 2.5 % (0.0-1.8); Eosinophils # (Auto) 0.1 K/mm3 (0.0-0.4); Eosinophils % (Auto) 0.9 % (0.0-4.3); Hematocrit 44.6 % (35.5-45.6); Lymphocytes # (Auto) 1.5 K/mm3 (1.2-5.4); Lymphocytes % (Auto) 23.3 % (13.4-35.0); Mean Corpuscular HGB Conc 34 % (32-34); Mean Corpuscular Volume 85 fl (84-94); Monocytes # (Auto) 0.4 K/mm3 (0.0-0.8); Monocytes % (Auto) 6.5 % (0.0-7.3); Platelet Count 220 K/mm3 (140-440); Red Blood Count 5.23 M/mm3 (3.65-5.03); Red Cell Distribution Width 14.4 % (13.2-15.2)
--- NOTE | 2020-03-17 16:42 | XRay Report ---
CHEST 2 VIEWS INDICATION / CLINICAL INFORMATION: Chest Pain. COMPARISON: 09/15/2018 FINDINGS: SUPPORT DEVICES: None. HEART / MEDIASTINUM: No significant abnormality. LUNGS / PLEURA: No significant pulmonary or pleural abnormality. No pneumothorax. ADDITIONAL FINDINGS: No significant additional findings. IMPRESSION: 1. No acute findings. Signer Name: Reginald Aguilera MD Signed: 03/17/2020 4:38 PM Workstation Name: [id number]
[2020-03-17 16:43] LABS: BUN/Creatinine Ratio 8; Blood Urea Nitrogen 7 mg/dL (9-20); Calcium 9.2 mg/dL (8.4-10.2); Hemolysis Index 30
[2020-03-17 20:02] VITALS: BP 137/80
--- NOTE | 2020-03-17 20:08 | Emergency Department Report ---
ED Chest Pain HPI - General Chief Complaint: Chest Pain Stated Complaint: CHEST PAIN/LFT ARM NUMB Time Seen by Provider: 03/17/20 19:56 Source: patient Mode of arrival: Ambulatory Limitations: No Limitations - History of Present Illness Initial Comments: This is a 34-year-old male who presents to the emergency department with a complaint of a 1 to 2-week history of intermittent left lateral chest pains that sometimes radiates to the left arm. At the time of my examination the patient is asymptomatic. He has a history of acid reflux, kidney stones, insomnia. He was worked up for some chest pain or palpitations in 2016 by [facility] and wore a Holter monitor that he says did not show any abnormalities. He is an occasional tobacco smoker but denies any illicit drug use. He denies any family history of early cardiac disease or events. He went to an urgent care and was told to go to the emergency department for further evaluation. - Related Data Home Medications Medication Instructions Recorded Confirmed Last Taken No Known Home Medications [No 04/25/19 04/25/19 Unknown Reported Home Medications] Allergies Allergy/AdvReac Type Severity Reaction Status Date / Time No Known Allergies Allergy Verified 06/07/16 18:04 Heart Score - HEART Score History: Slightly suspicious EKG: Normal Age: < 45 Risk factors: 1-2 risk factors Troponin: < normal limit HEART Score: 1 - Critical Actions Critical Actions: 0-3 pts:0.9-1.7%risk of adverse cardiac event.Candidate for discharge ED Review of Systems ROS: Stated complaint: CHEST PAIN/LFT ARM NUMB Other details as noted in HPI Comment: All other systems reviewed and negative Constitutional: denies: chills, fever Eyes: denies: eye pain, vision change ENT: denies: ear pain, throat pain Respiratory: denies: cough, shortness of breath Cardiovascular: chest pain. denies: palpitations Gastrointestinal: denies: abdominal pain, vomiting Genitourinary: denies: dysuria, discharge Musculoskeletal: denies: back pain, arthralgia Skin: denies: rash, lesions Neurological: denies: headache, weakness ED Past Medical Hx - Past Medical History Hx GERD: Yes Hx Kidney Stones: Yes Additional medical history: INSOMNIA / HOLTER MONITOR 2016 Bronchitis, PREDIAB ETIC - Social History Smoking Status: Never Smoker Substance Use Type: None - Medications Home Medications: Home Medications Medication Instructions Recorded Confirmed Last Taken Type No Known Home Medications [No 04/25/19 04/25/19 Unknown History Reported Home Medications] ED Physical Exam - General Limitations: No Limitations - Other Other exam information: GENERAL: The patient is well-developed well-nourished. HENT: Normocephalic. Atraumatic. Patient has moist mucous membranes. EYES: Extraocular motions are intact. NECK: Supple. Trachea is midline. CHEST/LUNGS: Clear to auscultation. There is no respiratory distress noted. HEART/CARDIOVASCULAR: Regular. There is no tachycardia. There is no murmur. ABDOMEN: Abdomen is soft, nontender. Patient has normal bowel sounds. SKIN: Skin is warm and dry. NEURO: The patient is awake, alert, and oriented. The patient is cooperative. The patient has no focal neurologic deficits. Normal speech. MUSCULOSKELETAL: There is no tenderness or deformity. ED Course Vital Signs 03/17/20 03/17/20 16:03 20:01 Temperature 98.4 F Pulse Rate 102 H 84 Respiratory 18 16 Rate Blood Pressure 143/84 Blood Pressure 137/80 [Left] O2 Sat by Pulse 20 L 98 Oximetry MATTEO score - Matteo Score Age > 65: (0) No Aspirin use within the Past 7 Days: (0) No 3 or more CAD Risk Factors: (0) No 2 or more Angina events in past 24 hrs: (0) No Known CAD with more than 50% Stenosis: (0) No Elevated Cardiac Markers: (0) No ST Deviation Greater than 0.5mm: (0) No MATTEO Score: 0 ED Medical Decision Making - Lab Data Result diagrams: 03/17/20 16:10 03/17/20 16:10 - EKG Data -: EKG Interpreted by Mi EKG shows normal: sinus rhythm, axis, intervals, QRS complexes, ST-T waves Rate: normal - EKG Data When compared to previous EKG there are: previous EKG unavailable Interpretation: normal EKG - Radiology Data Radiology results: image reviewed interpreted by me: Chest x-ray does not show any acute process. There are no pleural effusions, obvious pneumonia and there is no pneumothorax. No significant cardiomegaly. - Medical Decision Making This patient presents with a 2-week history of some intermittent left lateral chest pains. EKG does not have any morphology consistent with ST elevation MS. Chest x-ray does not show any acute process. Patient's labs have been unremarkable including CBC, metabolic panel and negative troponin. The patient has a low heart and MATTEO score. He is low on the Wells score criteria and negative on the pulmonary embolism rule out criteria. His vital signs have been reassuring throughout his ED course. For all these reasons patient appears safe for discharge home at this time. He has previous follow-ups with [facility] and has been instructed to follow-up with them, as well as his primary care physician, in the next few days. He will return to the ER with any worsening of symptoms or with any acute distress. Critical Care Time: No Critical care attestation.: If time is entered above; I have spent that time in minutes in the direct care of this critically ill patient, excluding procedure time. ED Disposition Clinical Impression: Intermittent chest pain Disposition: DC-01 TO HOME OR SELFCARE Is pt being admited?: No Condition: Stable Instructions: Chest Pain (ED) Additional Instructions: Please follow-up with your primary care physician in the next 2 days. Please follow-up with [facility] cardiology regarding your intermittent chest pains. Return to the emergency department with any worsening of your symptoms or with any acute distress. Referrals: THANG CARPENTER MD [Primary Care Provider] - 2-3 Days [facility] [Provider Group] - 2-3 Days Time of Disposition: 20:12
== END 2020-03-17 20:31 | disposition home or self-care (01) ==
LOC: ED 15:51
DX: R07.89 Other chest pain (principal); K21.9 Gastro-esophageal reflux disease without esophagitis; G47.09 Other insomnia
CPT/HCPCS: 36415; 71046; 80048; 84484; 85025; 93005

== ENCOUNTER 2020-07-15 22:28 | Emergency (ER) | payer MEDICAID ==
[2020-07-15 23:14] VITALS: BP 134/88
== END 2020-07-15 22:45 | disposition left against medical advice (07) ==
LOC: ED 22:28
DX: R73.9 Hyperglycemia, unspecified (principal); Z53.21 Procedure and treatment not carried out due to patient leaving prior to being seen by health care provider
CPT/HCPCS: 82962

== ENCOUNTER 2020-07-23 20:03 | Emergency (ER) | payer MEDICAID ==
[2020-07-23 20:57] VITALS: BP 115/85
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
--- NOTE | 2020-07-23 21:33 | XRay Report ---
CHEST 2 VIEWS INDICATION / CLINICAL INFORMATION: Shortness of breath, chills. COMPARISON: None available. FINDINGS: SUPPORT DEVICES: None. HEART / MEDIASTINUM: No significant abnormality. LUNGS / PLEURA: There is a faint opacity in the right lung base. No pneumothorax. ADDITIONAL FINDINGS: No significant additional findings. IMPRESSION: Faint pulmonary opacity in the right lung base could represent developing pneumonia. Clinical correla tion is recommended. Signer Name: Juan Alberto De La Cruz MD Signed: 07/23/2020 9:28 PM Workstation Name: [email or web address] [id number]
== END 2020-07-23 21:50 | disposition home or self-care (01) ==
LOC: ED 20:03
DX: J18.9 Pneumonia, unspecified organism (principal); K21.9 Gastro-esophageal reflux disease without esophagitis; F17.200 Nicotine dependence, unspecified, uncomplicated; Z79.2 Long term (current) use of antibiotics
CPT/HCPCS: 71046

== ENCOUNTER 2020-09-07 09:03 | Emergency (ER) | payer MEDICAID ==
[2020-09-07] MEDS ORDERED: ASPIRIN 325 MG TAB PO ONE (09:21)
--- NOTE | 2020-09-07 09:33 | Emergency Department Report ---
Blank Doc - Documentation Documentation: 35-year-old male that presents with chest pain and shortness of breath. 1- This initial assessment/diagnostic orders/clinical plan/ treatment(s) is/are subject to change based on pt's health status, clinical progression and re- assessment by fellow clinical providers in the ED. Further treatment and workup at subsequent clinical provers discretion. Patient/guardians urged not to elope from ED as their condition may be serious if not clinically assessed and managed. 2-cardiac work-up
[2020-09-07 10:02] LABS: Basophils # (Auto) 0.1 K/mm3 (0.0-0.1); Basophils % (Auto) 1.1 % (0.0-1.8); Eosinophils # (Auto) 0.2 K/mm3 (0.0-0.4); Eosinophils % (Auto) 2.5 % (0.0-4.3); Hematocrit 43.6 % (35.5-45.6); Hemoglobin 15.1 gm/dl (11.8-15.2); Lymphocytes # (Auto) 2.6 K/mm3 (1.2-5.4); Mean Corpuscular HGB Conc 35 % (32-34); Mean Corpuscular Volume 84 fl (84-94); Monocytes # (Auto) 0.5 K/mm3 (0.0-0.8); Monocytes % (Auto) 7.5 % (0.0-7.3); Platelet Count 235 K/mm3 (140-440); Red Blood Count 5.22 M/mm3 (3.65-5.03); Red Cell Distribution Width 14.9 % (13.2-15.2)
--- NOTE | 2020-09-07 10:13 | XRay Report ---
CHEST PA AND LATERAL VIEWS INDICATION: Chest Pain. COMPARISON: 07/23/2020 FINDINGS: Support devices: None Heart: Normal and unchanged Lungs/Pleura: No acute pulmonary or pleural findings. Right basilar opacity on the previous exam has cleared. IMPRESSION: 1. No acute disease. Signer Name: Tony Ross MD Signed: 09/07/2020 10:08 AM Workstation Name: [id number]
[2020-09-07 10:26] LABS: Alanine Aminotransferase 39 units/L (7-56); Albumin 4.5 g/dL (3.9-5); BUN/Creatinine Ratio 14; Blood Urea Nitrogen 11 mg/dL (9-20); Calcium 9.4 mg/dL (8.4-10.2); Hemolysis Index 33
[2020-09-07 10:30] LABS: INR 1.1 (0.87-1.13)
[2020-09-07 10:31] LABS: Partial Thromboplastin Time 29.2 Sec. (24.2-36.6)
[2020-09-07] MEDS ORDERED: LIDOCAINE VISCOUS 2% 15 ML ORAL LIQD PO ONE (11:42)
[2020-09-07] MEDS ORDERED: ALUM-MAG HYDROXIDE-SIMETHICONE 200-200-20MG/5ML ORAL LIQD 30 ML PO ONE (11:42)
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
[2020-09-07 13:27] VITALS: BP 126/76
== END 2020-09-07 13:24 | disposition home or self-care (01) ==
LOC: ED 09:03
DX: R07.89 Other chest pain (principal); K21.9 Gastro-esophageal reflux disease without esophagitis; R06.02 Shortness of breath; F17.200 Nicotine dependence, unspecified, uncomplicated; Z98.890 Other specified postprocedural states; Z79.2 Long term (current) use of antibiotics; Z79.899 Other long term (current) drug therapy
CPT/HCPCS: 36415; 71046; 80053; 84484; 85025; 85610; 85730; 93005

== ENCOUNTER 2021-06-03 00:24 | Emergency (ER) | payer MEDICAID ==
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
[2021-06-03 04:26] VITALS: BP 118/79
== END 2021-06-03 04:21 | disposition home or self-care (01) ==
LOC: ED 00:24
DX: N48.89 Other specified disorders of penis (principal); F17.200 Nicotine dependence, unspecified, uncomplicated
CPT/HCPCS: 99282